=== PATIENT | male | born 1955 | race Caucasian/White ===

== ENCOUNTER 2024-07-03 09:15 | Emergency (ER) | payer BC, OTHER, SELFPAY ==
[2024-07-03 09:20] VITALS: BP 165/92; PULSE 76; TEMP 36.7; O2SAT 96; BMI 29.7
--- NOTE | 2024-07-03 09:28 | ED_ITS ---
HPI HPI - General Adult General Chief complaint: Back Pain/Injury Stated complaint: LOWER BACK PAIN Time Seen by Provider: 07/03/24 09:18 Source: patient Mode of arrival: walk-in Limitations: no limitations History of Present Illness HPI narrative: Patient presenting to the emergency department for evaluation of right low back pain. Patient states when he tried to get up out of bed this morning, he noted when he sat up too quickly exam pain on the right lower lumbar. Patient states it been worse whenever he tries to sit up, go from standing to sitting or lying back down, or when he tries to go from sitting to standing. States his in the right lower lumbar, radiates down the right buttock into the right upper thigh posteriorly. Has had no bowel or bladder incontinence, no numbness, tingling, weakness. Has had no gait instability. No difficulty ambulating. No bowel or bladder incontinence, no perineal or saddle anesthesia. Can feel when he wipes. No trauma. No complaints at this time Related Data Previous Rx's ?Medication ?Instructions ?Recorded cyclobenzaprine 10 mg tablet 10 mg PO TID PRN muscle spasm #14 07/03/24 tabs naproxen 500 mg tablet 500 mg PO Q12H PRN pain #20 tabs 07/03/24 Allergies Allergy/AdvReac Type Severity Reaction Status Date / Time No Known Drug Allergies Allergy Verified 07/03/24 09:20 Opioid HPI Opioid Management Most Recent Opioid Data: 2 Last Pain Scale 9 07/03/24 09:23 Review of Systems ROS Narrative Negative unless otherwise stated in the HPI PFSH PFSH Social History Little interest or pleasure in doing things: not at all Feeling down, depressed, or hopeless: not at all Exam Narrative Exam Narrative: General: NAD, AAOx3, no distress Back: Right lower lumbar pain, tenderness and hypertonicity, no midline pain or tenderness, positive EHL bilaterally, no perianal or saddle anesthesia, positive straight leg raise of right leg at 60 degrees Ext: No abnormal range of motion, no swelling, 5 out of 5 strength, normal sensation and motor Neuro: Speech is clear and appropriate. Normal level of consciousness. Gait and coordination are normal. 5/5 strength in all extremities. Constitutional Vital Signs, click to edit/add: Last Vital Signs Temp 98.1 F 07/03/24 09:20 Pulse 76 07/03/24 09:20 Resp 18 07/03/24 09:20 BP 165/92 H 07/03/24 09:20 Pulse Ox 96 07/03/24 09:20 O2 Del Method Room Air 07/03/24 09:20 Course Vital Signs Vital signs: Vital Signs Temperature 98.1 F 07/03/24 09:20 Pulse Rate 76 07/03/24 09:20 Respiratory Rate 18 07/03/24 09:20 Blood Pressure 165/92 H 07/03/24 09:20 Pulse Oximetry 96 07/03/24 09:20 Oxygen Delivery Method Room Air 07/03/24 09:20 Temperature 98.1 F 07/03/24 09:20 Pulse Rate 76 07/03/24 09:20 Respiratory Rate 18 07/03/24 09:20 Blood Pressure 165/92 H 07/03/24 09:20 Pulse Oximetry 96 07/03/24 09:20 Oxygen Delivery Method Room Air 07/03/24 09:20 Medical Decision Making MDM Narrative Medical decision making narrative: [facility] Patient with history as above presented with right low back pain. History obtained from patient. Patient was nontoxic, stable. Ambulatory. Exam as above. Differential diagnosis considered. Overall presentation is consistent with lumbar back strain, low suspicion for neurologic injury or abnormality Pt who presents with low back pain without signs of spinal cord compression, cauda equina syndrome, infection, aneurysm, or other serious etiology. The patient is neurologically intact. Xray imaging not indicated. Given the extremely low risk of these diagnoses further testing and evaluation for these possibilities does not appear to be indicated at this time. The patient has been instructed to return if the symptoms worsen or change in any way. Positive EHL bilaterally Advanced guidance has been given. Vss, pex is benign at this time. Pt to fu with pcp 1-2 days for reeval, rter should sx worsen, persist or become worrysome in any way. Pt expressed understanding and agreement with plan of care at this time. Will fu as planned. Pt stable for discharge. Discharge Plan Discharge Chief Complaint: Back Pain/Injury Clinical Impression: Back pain Patient Disposition: Home, Self-Care Time of Disposition Decision: 09:32 Condition: Good Prescriptions / Home Meds: New naproxen 500 mg tablet 500 mg PO Q12H PRN (Reason: pain) Qty: 20 0RF cyclobenzaprine 10 mg tablet 10 mg PO TID PRN (Reason: muscle spasm) Qty: 14 0RF Print Language: Israeli Instructions: Acute Low Back Pain (ED) Additional Instructions: Follow-up with your PCP in the next 1 to 2 days. Return to the emergency department should symptoms worsen or become worrisome in any way. Referrals: Physician,Non-Staff, MD [Primary Care Provider] - 1 week
[2024-07-03] MEDS: KETOROLAC TROMETHAMINE 30 MG/ML VIAL 15 MG IM (09:37)
[2024-07-03] MEDS: CYCLOBENZAPRINE HCL 10 MG TABLET PO (09:37)
[2024-07-03 09:43] VITALS: BP 138/86; PULSE 86; O2SAT 98
== END 2024-07-03 09:44 | disposition home or self-care (01) ==
PROVIDERS: Emergency Provider Emergency Medicine; PCP Family Medicine
DX: M54.50 Low back pain, unspecified (principal)
CPT/HCPCS: 96372; 99284; J1885

== ENCOUNTER 2024-09-16 18:28 | Emergency (ER) | payer BC, OTHER, SELFPAY ==
[2024-09-16 18:34] VITALS: BP 154/97; PULSE 113; TEMP 36.9; O2SAT 95; BMI 30.2
--- OUTSIDE RECORDS SUMMARY | 2024-09-16 18:35 | XMS_ITS | CCD ---
Author Organization [facility] Care Team Providers Care Assessment Technician Name Role Phone Alejo BRADLEY Primary Care Physician Vidhya Reed Unavailable Alejo BRADLEY Attending Unavailable Alejo BRADLEY Admitting Unavailable Alejo BRADLEY Attending Unavailable Alejo BRADLEY Attending Unavailable Trixie Guzman. Attending Unavailable Trixie Guzman. Attending Unavailable Alejo BRADLEY Referring Unavailable KEYON MORGAN Attending Unavailab le Trixie Guzman Admitting Unavailable Trixie Guzman Attending Unavailable Trixie Guzman Referring Unavailable Alejo BRADLEY Admitting Unavailable Alejo BRADLEY Attending Unavailable Medications Current Medications Medication Drug Class(es) Dates Sig (Normalized) Sig (Original) acetaminophen 300 mg / codeine phosphate 30 mg oral tablet (1 source) Opioid Agonist Start: 07-09-2022 End: 07-11-2022 Tylenol with Codeine 300 mg-30 mg Tab 1 tab(s), Oral, q6hr as needed for pain, 12 tab(s), Refill(s) 0, [facility] #[id number], 187.2, cm, 07/01/22 14:47:00 EDT, Height/Length Dosing, 105.6, kg, 07/01/22 14:47:00 EDT, Weight Dosing Start Date: 07/09/22 Stop Date: 07/11/22 Status: Ordered magnesium sulfate 225 MG / potassium chloride 188 MG / sodium sulfate 1479 MG Oral Tablet [Sutab] (2 sources) Start: 05-06-2022 take 1 tablet by mouth once Sutab oral tablet See Instructions, 1 EA, Refill(s) 0, Please follow instructions per packaging and physician's handout, [facility] #[id number], 187.2, cm, 05/06/22 15:46:00 EDT, Height/Length Dosing, 107.1, kg, 05/06/22 15:46:00 EDT, Weight Dosing Start Date: 05/06/22 Status: Ordered ofloxacin 3 mg/ml ophthalmic solution (1 source) Quinolone Antimicrobial Start: 05-24-2023 Ofloxacin 0.3 % 10 drops into affected ear Otic to right ear Once a day for 7 days Apr, Active tadalafil 5 mg oral tablet (2 sources) Phosphodiesterase 5 Inhibitor Start: 08-07-2022 take 1 tablet by mouth once daily as needed Cialis 5 mg oral tablet 5 mg = 1 tab(s), Oral, Daily, PRN ED, # 90 tab(s), Refills(s) 3, Pharmacy: [facility] #[id number], 187.2, cm, 08/07/22 7:52:00 EST, Height/Length Dosing, 105.5, kg, 08/07/22 7:52:00 EST, Weight Dosing Start Date: 08/07/22 Status: Ordered triamcinolone acetonide 0.001 mg/mg topical ointment (9 sources) Corticosteroid Start: 05-01-2022 triamcinolone Top 0.1% Oint 1 judith, Topical, TID, 30 gram, Refill(s) 0, apply a thin film to affected area, avoid using on face., [facility] #[id number], 187.2, cm, 05/01/22 11:21:00 EDT, Height/Length Dosing, 106.7, kg, 05/01/22 11:21:00 EDT, Weight Dosing Start Date: 05/01/22 Status: Ordered Problems Active Problems Problem Classification Problem Date Documented Date Episodic/Chronic Abdominal hernia (17 sources) Inguinal hernia; Translations: [Unilateral inguinal hernia, without obstruction or gangrene, not specified as recurrent] Onset: 06-17-2022 Episodic Disorders of lipid metabolism (12 sources) Familial hypercholesterolemia ; Translations: [Familial hypercholesterolemia ] Onset: 08-07-2022 06-10-2021 Chronic Diverticulosis and diverticulitis (15 sources) Diverticula of intestine; Translations: [Diverticulosis of intestine, part unspecified, without perforation or abscess without bleeding] Onset: 07-01-2022 Chronic Other ear and sense organ disorders (1 source) Impacted cerumen in right ear; Translations: [Impacted cerumen, right ear] Onset: 05-19-2023 Episodic Other ear and sense organ disorders (7 sources) Excessive cerumen in ear canal 05-19-2023 Episodic Other ear and sense organ disorders (1 source) Impacted cerumen, right ear Episodic Other ear and sense organ disorders (1 source) Unspecified acute noninfective otitis externa, right ear Episodic Other injuries and conditions due to external causes (16 sources) Injury of knee 03-06-2020 Episodic Other male genital disorders (1 source) Corporo-venous occlusive erectile dysfunction; Translations: [Erectile dysfunction] Onset: 08-07-2022 Chronic Other male genital disorders (9 sources) 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 08-07-2022 Chronic Other non-traumatic joint disorders (16 sources) Knee pain 03-06-2020 Episodic Other non-traumatic joint disorders (1 source) Pain in right knee; Translations: [Pain of right knee joint] Onset: 08-07-2022 Episodic Other nutritional; endocrine; and metabolic disorders (20 sources) Obesity; Translations: [Obesity, unspecified] Onset: 05-01-2022 Chronic Other nutritional; endocrine; and metabolic disorders (3 sources) Obese class I; Translations: [Body mass index (BMI) 30.0-30.9, adult] Onset: 05-01-2022 Chronic Other nutritional; endocrine; and metabolic disorders (9 sources) Body mass index 30+ - obesity 01-16-2020 Chronic Other nutritional; endocrine; and metabolic disorders (16 sources) Metabolic disease 06-10-2021 Chronic Other nutritional; endocrine; and metabolic disorders (2 sources) Disorder of protein metabolism; Translations: [Other disorders of plasma-protein metabolism, not elsewhere classified] Onset: 08-07-2022 Chronic Other nutritional; endocrine; and metabolic disorders (2 sources) Overweight in adulthood with body mass index of 25 or more but less than 30; Translations: [Body mass index (BMI) 29.0-29.9, adult] Onset: 05-19-2023 Episodic Other nutritional; endocrine; and metabolic disorders (1 source) Overweight; Translations: [Overweight] Onset: 06-14-2024 Episodic Other screening for suspected conditions (not mental disorders or infectious disease) (12 sources) Screening for malignant neoplasm of colon done; Translations: [Encounter for screening for malignant neoplasm of colon] Onset: 05-06-2022 Episodic Other skin disorders (2 sources) Epidermoid cyst; Translations: [Epidermal cyst] Onset: 05-01-2022 Episodic Other skin disorders (16 sources) Epidermoid cyst of skin of back 05-01-2022 Episodic Residual codes; unclassified (1 source) Patient encounter status; Translations: [Other specified health status] Onset: 05-01-2022 Episodic Residual codes; unclassified (16 sources) Increased body mass index 03-06-2020 Episodic Unclassified (16 sources) Non-smoker 05-01-2022 Unclassified (20 sources) Patient encounter status 05-08-2020 Past or Other Problems Problem Classification Problem Date Documented Da te Episodic/Chronic Skin and subcutaneous tissue infections (16 sources) Cellulitis of face Resolved: 04-26-2019 04-29-2019 Episodic Unclassified (16 sources) None (qualifier value) 06-10-2014 Unclassified (16 sources) Sebaceous cyst of skin 03-06-2020 Results Test Name Value Interpretation Reference Range Facility [facility] 08-02-2024 Reminders Reminders From: Bri Frazier To: [facility] - Reminders/Recalls; Sent: 08/02/2024 16:09:48 EST Show up: 06/20/2034 16:09:00 EDT Subject: Ambulatory Reminder- 10 year recall Due Date/Time: 07/20/2034 16:09:00 EDT Reminder/Recall Colonoscopy 07/20/24 Dr Guzman 10 year recall Normal [facility] Main OR Intraoperative Recor don 07-21-2024 Main OR Intraoperative Record Main OR Intraoperative Record IntraOp Document Type FT Summary Primary Physician: Trixie Guzamn MD Finalized Date/Time: 07/21/24 14:24:42 Pt. Name: NEELIMA JACOBSON/Sex: 1955 Male Med Rec #: [id number] Physician: Trixie Guzman MD Financial #: [id number] Pt. Type: O Room/Bed: / Admit/Disch: 07/20/24 08:28:46 - 07/20/24 23:59:59 Institution: Case Times FT Entry 1 Patient Times In Room 07/20/24 09:36:00 Out Room 07/20/24 09:57:00 Procedure Times Start 07/20/24 09:40:00 Stop 07/20/24 09:55:00 Anesthesia Times Start 07/20/24 09:36:00 Stop 07/20/24 09:57:00 Time at [facility] 07/20/24 09:44:00 Last Modified By: Chelsea CARPENTER, Federico Barros 07/20/24 09:56:47 General Comments: 07/21/24 Chart opened to review and send charges [facility]oth CSFA Case Attendance FT Entry 1 Entry 2 Entry 3 Case Attendee Lurdes HERNANDEZ, James Tran RN, Jose Calros Brown Role Performed Anesthesiologist Asbestos Handler - Primary Staff - Other Harness Racing Handicapper Time In 07/20/24 09:36:00 07/20/24 09:36:00 07/20/24 09:44:00 Time Out 07/20/24 09:57:00 07/20/24 09:57:00 07/20/24 09:57:00 Procedure COLONOSCOPY(.) COLONOSCOPY(.) COLONOSCOPY(.) Comments Dr. Rosario help in room supervising case Last Modified By: Chelsea RN, Federico Tran RN, Federico Tran RN, Federico Barros 07/20/24 09:57:16 07/20/24 09:57:16 07/20/24 09:57:16 Entry 4 Entry 5 Case Attendee Connie LACY, Marie Guzman MD, Trixie Galindo Role Performed Scrub - Primary Surgeon - Primary Time In 07/20/24 09:36:00 07/20/24 09:36:00 Time Out 07/20/24 09:57:00 07/20/24 09:57:00 Procedure COLONOSCOPY(.) COLONOSCOPY(.) Comments Last Modified By: Chelsea RN, Federico Tran RN, Federico Barros 07/20/24 09:57:16 07/20/24 09:57:16 Perioperative Protocols FT Pre-Care Text: Implements protective measures prior to operative or invasive procedure, confirms identity before the operative or invasive procedure, verifies operative procedure, surgical site, and laterality Entry 1 Procedure(s) COLONOSCOPY(.) Patient Identity Birthday, ID Band Verified (select at Check, Patient least 2): Participation Consents / H and P Anesthesia Consent, Operative Site N/A Verified H&P, Surgery/Procedure Marking Verified Consent Surgical Site No Laterality Verified n/a Verified Procedure Verified Yes Correct Patient Yes Position Verified Availability Equipment, Medication Prep Dry n/a Verified (If Applicable) PreOp Antibiotic No Time Out James Garg Given Participants Chelsea Davies RN, Morgan E, Schafer CST, Megan Zamudio MD, Trixie Patterson Time Out Complete 07/20/24 09:39:00 Outcomes Met? Yes Last Modified By: Federico Tran RN 07/20/24 09:40:08 Post-Care Text: The patient is free from signs and symptoms of injury caused by extraneous objects Allergy Information FT Pre-Care Text: Verifies allergies Entry 1 Allergies Reviewed? Yes Allergies Reviewed Self/Patient With Outcomes Met? Yes Last Modified By: Federico Tran RN 07/20/24 09:37:42 Post-Care Text: The patient received appropriate medication(s) safely administered during the perioperative period Surgical Procedures FT Entry 1 Procedure Description Procedure COLONOSCOPY Modifiers . Surgeon Description Colonoscopy Primary Procedure Yes Primary Surgeon Megan RAMIREZ, Trixie Patterson Start 07/20/24 09:40:00 Stop 07/20/24 09:55:00 Anesthesia Type General Surgical Service Gastroenterology Wound Class 2 - Clean-Contaminated Last Modified By: Federico Tran RN 07/20/24 09:57:55 General Case Data FT Pre-Care Text: Classifies surgical wound, implements aseptic technique, initiates traffic control Entry 1 Case Information OR ENDO 1 FT Case Level Level 2 Wound Class 2 - Clean-Contaminated Specialty Gastroenterology ASA Class 2 Preop Diagnosis Colon cancer screening Postop Same As Preop No Postop Diagnosis External Outcomes Met? Yes hemorrhoids/Skin tags, Internal hemorrhoids Last Modified By: Federico Tran RN 07/20/24 09:57:07 Post-Care Text: The patient is free from signs and symptoms of infection Skin Assessment (Pre Procedure) FT Pre-Care Text: Implements protective measures to prevent skin/ tissue injury due to thermal or mechanical sources Evaluates for signs and symptoms of physical injury to skin and tissue Entry 1 Skin Integrity Dry, Warm Skin Abnormality No Outcomes Met? Yes Last Modified By: Federico Tran RN 07/20/24 09:39:34 Post-Care Text: The patient is free from signs and symptoms of injury caused by extraneous objects Patient Positioning FT Pre-Care Text: Identifies physical alterations that require additional precautions for procedure-specific positioning, verifies presence of prosthetics or corrective devices, positions the patient, evaluates the patient for signs and symptoms of injury as a result of positioning Entry 1 Procedure COLONOSCOPY(.) Body Position (more content not included)... Normal [facility] Discharge Instructionson Discharge Instructions Discharge Instructions NEELIMA JACOBSON :1955 Visit Date:07/20/2024 Inpatient Discharge Instructions Your Care Team Admitting Physician - Trixie Guzman MD Referring Physician - Trixie Guzman MD Reason for Your Visit SCREEN FOR COLON CANCER Your Diagnosis Anal skin tag Hemorrhoids, internal Procedure History Repair of left inguinal hernia (07/09/2022), Colonoscopy (05/03/2012). What to do next Previously Scheduled Follow-Up Appointments 2023 9:40 AM EST With: PAULINA MORGAN PA-C Where: [facility] [address] [place] [address] [place] [address]- Thursday 12:45 PM EST With: Trixie Guzman MD Where: [facility] [address] [facility] [address] [place] [address]- Thursday 7:40 AM EDT With: Alejo BRADLEY DO, FAAFP Where: [facility] [address], [place] [address]- New Follow Up Appointments after Discharge Follow Up with Trixie Guzman MD, [facility], [facility] When: Comments: Office will call to schedule follow up appointment and/or review any pending biopsy results Call for any problems. Where: [address], [address] [place] [phone] Allergies No Known Allergies Problems Ongoing - Any problem that you are currently receiving treatment for. 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 Cellulitis, face Class 1 obesity with body mass index (BMI) of 30.0 to 30.9 in adult None Sebaceous cyst Education Materials Colonoscopy Care After Surgery Please read the instructions outlined below and refer to this sheet in the next few weeks. These discharge instructions provide you with general information on caring for yourself after you leave the hospital. Your doctor may also give you specific instructions. While your treatment has been planned according to the most current medical practices available, unavoidable complications occasionally occur. If you have any problems or questions after discharge, please call your doctor. ACTIVITY You may resume your regular activity, but move at a slower pace for the next 24 hours. Take frequent rest periods for the next 24 hours. Walking will help get rid of the air and reduce the bloated feeling in your abdomen (belly). No driving for 24 hours (because of the anesthesia (medicine) used during the test). You may shower. Do not sign any important legal documents or operate any machinery for 24 hours (because of the anesthesia used during the test). NUTRITION Drink plenty of fluids. You may resume your normal diet as instructed by your doctor. Begin with a light meal and progress to your normal diet. Heavy or fried foods are harder to digest and may make you feel nauseated (sick to your stomach). Avoid alcoholic beverages for 24 hours or as instructed. MEDICATIONS You may resume your normal medications unless your doctor tells you otherwise. WHAT YOU CAN EXPECT TODAY Some feelings of bloating in the abdomen. Passage of more gas than usual. Spotting of blood in your stool or on the toilet paper. FOLLOW-UP Your doctor will discuss the results of your test with you. SEEK IMMEDIATE MEDICAL ATTENTION IF: There is more than a spotting of blood in your stool. There is abdominal distention (your abdomen is swollen). There is vomiting. You have a temperature over 101.5 F. There is abdominal pain or discomfort that is severe or gets worse throughout the day. Hemorrhoids Hemorrhoids are swollen veins that may form: ??? In the butt (rectum). These are called internal hemorrhoids. ??? Around the opening of the butt (anus). These are called external hemorrhoids. Most hemorrhoids do not cause very bad problems. They often get better with changes to your lifestyle and what you eat. What are the causes? Having trouble pooping (constipation) or watery poop (diarrhea). ??? Pushing too hard when you poop. ??? . ??? Being very overweight (obese). ??? Sitting for too long. ??? Riding a bike for a long time. ??? Heavy lifting or other things that take a lot of effort. ??? Anal sex. What are the signs or symptoms? Pain. ??? Itching or soreness in the butt. ??? Bleeding from the butt. ??? Silva (more content not included)... Normal [facility] Comment on above: Result Comment: Elec tronically Signed By: Nolan CARPENTER, Belle\.br\Date and Time Signed: 07/20/24 10:15 EDT H&P Updateon 07-20-2024 H&P Update H&P Update Patient: NEELIMA JACOBSON Age: 68 years Sex: Male : 1955 Associated Diagnoses: None Author: Megan RAMIREZ, Trixie Patterson Preoperative Information Chief compliant/Indication for procedure: Screening colonoscopy Chief Complaint as above Review of Systems All systems reviewed, negative except as mentioned above Physical Examination Vital Signs (last 24 hrs) Last Charted Temp Temporal 36.6 DegC (JUL 20 08:39) Heart Rate Monitored 84 bpm (JUL 20 08:39) Resp Rate 15 br/min (JUL 20 08:39) SBP H 163 mmHg (JUL 20 08:39) DBP 88 mmHg (JUL 20:39) Weight 109 kg (JUL 20 08:35) BMI 31.17 (JUL 20 08:35) General: in Nad Abdomen: Soft, NTND Impression and Plan Diagnosis: Screening colonoscopy - colonoscopy Normal [facility] Main OR PACU II Recordon Main OR PACU II Record Main OR PACU II Record PACU Phase II Document Type FT Summary Primary Physician: Trixie Guzman MD Finalized Date/Time: 07/20/24 12:39:44 Pt. Name: NEELIMA JACOBSON/Sex: 1955 Male Med Rec #: [id number] Physician: Trixie Guzman MD Financial #: [id number] Pt. Type: O Room/Bed: / Admit/Disch: 07/20/24 08:28:46 - Institution: Case Times PACU II FT Pre-Care Text: Identifies barriers to communication and implements measures to provide psychological support and determines knowledge level Develops individualized plan of care, and ensures continuity of care Maintains patient's dignity and privacy, and maintains patient confidentiality Identifies and reports philosophical, cultural, and spiritual beliefs and values Identifies individual values and wishes concerning care administers prescribed antibiotic therapy and immunizing agents as ordered, Evaluates postoperative tissue perfusion Implements thermoregulation measures, and monitors body temperature Evaluates postoperative respiratory status Evaluates postoperative cardiac status Evaluates postoperative neurological status Assesses pain control, collaborated in initiating patient-controlled analgesia and implements alternative methods of pain control Verifies allergies, administers prescribed medications and solutions, evaluates response to medications Entry 1 In PACU II 07/20/24 09:59:00 Discharge from PACU 07/20/24 10:40:00 II Outcomes Met? Yes Last Modified By: Belle Francisco RN 07/20/24 12:39:41 Post-Care Text: The patient demonstrates knowledge of the expected response to the operative or invasive procedure The patient's care is consistent with the individualized perioperative plan of care The patient's right to privacy is maintained The patient's value system, lifestyle, ethnicity, and culture are considered, respected, and incorporated into the perioperative plan of care The patient participates in decisions affecting his or her perioperative plan of care. The patient is free from signs and symptoms of infection The patient has wound/tissue perfusion consistent with or improved from baseline levels established preoperatively The patient is at or returning to normothermia at the conclusion of the immediate postoperative period The patient's respiratory function is consistent with or improved from baseline levels established preoperatively The patient's cardiovascular status is consistent with or improved from baseline levels established preoperatively The patient's neurological status is consistent with or improved from baseline levels established preoperatively The patient demonstrates and/or reports adequate pain control throughout the perioperative period The patient received appropriate medication(s), safely administered during the perioperative period Finalized By: Belle Francisco RN Document Signatures Signed By: Belle Francisco RN 07/20/24 12:39 Normal [facility] Main OR Preoperative Recordo n 07-20-2024 Main OR Preoperative Record Main OR Preoperative Record Holding Area Document Type FT Summary Primary Physician: Trixie Guzman MD Finalized Date/Time: 07/20/24 08:35:52 Pt. Name: NEELIMA JACOBSON/Sex: 1955 Male Med Rec #: [id number] Physician: Trixie Guzman MD Financial #: [id number] Pt. Type: O Room/Bed: / Admit/Disch: 07/20/24 08:28:46 - Institution: Case Times Holding FT Pre-Care Text: Verifies consent for planned procedure, identifies individual values and wishes concerning care, includes family members in perioperative teaching Secures patient's records' belongings, and valuables, maintains patient's dignity and privacy, and maintains patient confidentiality Entry 1 In Holding 07/20/24 08:30:00 Outcomes Met? Yes Last Modified By: Alexandra Mendoza RN 07/20/24 08:34:56 Post-Care Text: The patient participates in decisions affecting his or her perioperative plan of care The patient's right to privacy is maintained Surgery Checklist FT Entry 1 Patient Birthday, ID Band Procedure History and Physical, Identification: Check, Patient Verification: Surgical Consent, With Participation Patient NPO after Midnight: Yes Date/Time: 07/20/24 04:15:00 Personal Items: Dentures, Glasses Personal Items clothes, shoes, Comment: glasses, upper dentures Limitations: n/a Complaints of Pain: No Pain Comment: denies Operative Site n/a Marking: Marked By: n/a Availability Equipment Verified: Does Patient Smoke No Patient states Yes Comment - Adult - Vicente postop adult Supervision supervision available Case Cancelled in No Holding Area see comments below for reason Last Modified By: Alexandra Mendoza RN 07/20/24 08:35:49 General Comments: Pt finished colon prep at 0415, states stool is clear liquid yellow, has been NPO since. /MDRN Finalized By: Alexandra Mendoza RN Document Signatures Signed By: Alexandra Mendoza RN 07/20/24 08:35 Normal [facility] Operative Reporton Operative Report Operative Report Patient: NEELIMA JACOBSON Age: 68 years Sex: Male : 1955 Associated Diagnoses: None Author: Trixie Guzman MD Pre-Procedure Procedure Date 07/20/2024 10:00:00 . Procedure Type: Colonoscopy. Procedure provider Performed by Trixie Guzman MD. Current history and physical Documented on chart. Repair of left inguinal hernia ([id number]) on 07/09/2022 at 66 Years. Comments: 07/09/2022 17:03 Ana Maria Palumbo RN Left robotic assisted inguinal hernia repair Colonoscopy ([id number]) on 05/03/2012 at 56 Years.. Past Medical History Active BMI 29.0-29.9,adult ([id number]) Resolved None ([id number]): Resolved. Cellulitis, face ([id number]): Resolved on 04/26/2019 at 63 years. Class 1 obesity with body mass index (BMI) of 30.0 to 30.9 in adult ([id number]): Resolved. Sebaceous cyst ([id number]): Resolved.. Family History Entire family history is negative.. Procedure History Repair of left inguinal hernia ([id number]) on 07/09/2022 at 66 Years. Comments: 07/09/2022 17:03 Ana Maria Palumbo RN Left robotic assisted inguinal hernia repair Colonoscopy ([id number]) on 05/03/2012 at 56 Years.. Colorectal neoplasm risk assessment Average risk. Informed Consent After discussing the rationale, risks and benefits, and alternatives to this procedure, the patient provided signed consent for the procedure. Pre-procedure diagnosis: Screening. Medications (Selected) Inpatient Medications Ordered Lactated Ringers IV Kiara 1000 mL 1,000 mL: 1,000 mL, IV, 100 mL/hr, Routine, Start date 07/20/24 8:48:00 EDT, 10 hour(s), Total volume (mL): 1,000, 109 kg, 2.38, m2 Sodium Chloride 0.9% IV Kiara 1000 mL 1,000 mL: 1,000 mL, IV, 20 mL/hr, Routine, Start date 07/20/24 6:37:00 EDT, 50 hour(s), Total volume (mL): 1,000, 109 kg, 2.38, m2 Anticoagulant/antiplatelet None. ASA Classification: Class II. . Monitoring: See anesthesia record. . Procedure The procedure was performed in the hospital. See anesthesia record for sedation given during procedure. The patient was positioned starting in the left lateral decubitus position. Endoscope type used was an adult-size. The endoscope was lubricated then introduced through the anus. The scope was advanced to the cecum. No difficulties encountered during the procedure. The bowel preparation quality was good and was adequate (see polyps greater than or equal to 6 millimeters). The patient tolerated the procedure well. Time to Cecum: 4 min Withdrawal time 11 min Last colonoscopy: 21 Findings 1. External skin tag 2. Moderate internal hemorrhoids. Otherwise normal exam Images Procedure images: Rec_hd_video__ [id number]___[id number].jpg Rec_hd_video_ [id number]__[id number].jpg Rec_hd_video_ 9___[id number].jpg Rec_hd_video_ 9_[id number].jpg . Post-Procedure Complications: none. Estimated blood loss: none. Specimens: none. Devices/ implants: none left in place. Impression and Plan internal hemorrhoids Anal skin tags Recommendations: Repeat colonoscopy:: In 10 years. Follow-up:: With primary care as previously scheduled. Diet:: Previous. Medication resumption:: Continue current medications, Avoid NSAIDs. Return to activities:: After 24 hours. Education and Follow-up: Counseled: Patient, Family. [facility] Comment on above: Result Comment: Elec tronically Signed By: Trixie Guzman MD\.br\Date and Time Signed: 07/20/24 10:01 EDT Other Comment: Shereen de luna Attachment - attachment storage system not supported [id number] Can be viewed in source systemMissing Attachment - attachment storage system not supported [id number] Can be viewed in source systemMissing Attachment - attachment storage system not supported [id number] Can be viewed in source systemMissing Attachment - attachment storage system not supported [id number] Can be viewed in source system Ambulatory Visit Summaryon 1 Ambulatory Visit Summary Ambulatory Visit Summary NEELIMA JACOBSON :1955 Visit Date:07/07/2024 Ambulatory Visit Instructions Your Diagnosis Screen for colon cancer Left inguinal hernia Your Care Team Attending Physician - Trixie Guzman MD Primary Care Physician - Alejo BRADLEY DO, FAAFP Procedures Performed Repair of left inguinal hernia (07/09/2022), Colonoscopy (05/03/2012). Discharge Vitals Heart Rate (Peripheral) 77 Respiratory Rate 16 Blood Pressure 167/90 Height 187 cm Height 74 in Weight 109 kg Weight 239.8 lb BMI 31.17 What to do next Scheduled Follow-Up Appointments 2023 9:40 AM EST With: PAULINA MORGAN PA-C Where: [facility] [address] [place] [address]- Thursday 7:40 AM EDT With: Alejo BRADLEY DO, FAAFP Where: [facility] [address] [place] [address] [place] [address]- Allergies No Known Allergies Problems Ongoing - Any problem that you are currently receiving treatment for. 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 Cellulitis, face Class 1 obesity with body mass index (BMI) of 30.0 to 30.9 in adult None Sebaceous cyst Patient Survey You may receive a survey via text or e-mail asking about your office visit. Please share your experience with us by completing your survey. We appreciate your feedback and thank you for choosing us for your care. Emma Schwab [facility] Gastroenterology Office/Clin ic Noteon 07-07-2024 Gastroenterology Office/Clinic Note Gastroenterology Office/Clinic Note Chief Complaint 1 year colon recall HPI Staff This is a 68 year old male who presents today for a 1 year colon recall. Denies Blood Thinners. Denies GLP-1 Agonists. Denies any family history of colon cancer/polyps or IBD. Denies Dysphagia, abdominal pain, constipation, diarrhea or bloody stools. Denies any previous EGD. Denies any recent imaging or labs. Last visit w/ Christiana 06/2022 Assessment/Plan 1. Diverticulosis (K57.90: Diverticulosis of intestine, part unspecified, without perforation or abscess without bleeding) Patient to have repeat colonoscopy in 1 year- 2022. Educated regarding use of fiber supplementation daily- instructed to separate 2 hours from other medications. Colonoscopy w/ Dr Whitehead 05/20/22 Endoscopic diagnosis: 1. Incomplete colonoscopy secondary to significant looping, scope reached distal transverse colon 2. Severe diverticulosis in the sigmoid and descending colon Barium Enema 05/20/22 IMPRESSION: LEFT INTERNAL HERNIA CONTAINING 15 CM LONG PROXIMAL SIGMOID COLONIC LOOP. MILD DIVERTICULOSIS OF THE DISTAL SIGMOID COLON AND MIDDLE DESCENDING COLON. History of Present Illness I have reviewed HPI staff note, most recent labs and imaging, more than 30 minutes spent reviewing the chart, during encounter, placing orders and counseling the patient. pt with hx of incomplete colonoscopy no symptoms no hx of polyps hernia repaired Review of Systems PHQ Score Initial Depression Screen Score: 0 SCORE All systems reviewed, negative except as mentioned above Physical Exam Vitals & Measurements HR: 77(Peripheral) RR: 16 BP: 167/90 HT: 74 in HT: 187 cm WT: 109 kg WT: 239.8 lb BMI: 31.17 General: alert, no acute distress HEENT: atraumatic normocephalic Cardiovascular: regular rate and rhythm, normal peripheral perfusion Respiratory: Lungs CTA, respirations non labored Extremities: no deformity, no trauma Abdomen: Benign, soft, nontender nondistended Assessment/Plan 1. Screen for colon cancer (Z12.11: Encounter for screening for malignant neoplasm of colon) Ordered: Colonoscopy (Hospital Procedure) 2. 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 Medications No active medications Allergies No Known Allergies Social History Alcohol - Low Risk, 04/29/2019 Current, Liquor, 1-2 times per month, 07/09/2022 Substance Abuse - Denies Substance Abuse, 04/29/2019 Tobacco - Denies Tobacco Use, 04/29/2019 Never (less than 100 in lifetime) Tobacco Use:., 07/07/2024 Never (less than 100 in lifetime) Tobacco Use:. Never Smokeless Tobacco Use:., 06/14/2024 Family History Family history is negative Immunizations Vaccine Date Status Comments influenza virus vaccine, inactivated - Not Given Patient Refuses influenza virus vaccine, inactivated - Not Given Postpone due to refusal influenza virus vaccine, inactivated - Not Given Patient Refuses influenza virus vaccine, inactivated - Not Given Postpone due to refusal influenza virus vaccine, inactivated - Not Given Patient Refuses SARSCoV2 mRNA(svjxssarv-kjab-agzluq ) vac 12/17/2021 Recorded diphtheria/pertussis, acel/tetanus adult 11/23/2021 Recorded SARSCoV2 mRNA(zdbbskvwj-mulf-brjowr ) vac 11/23/2021 Recorded Normal [facility] Comment on above: Result Comment: Elec tronically Signed By: Megan RAMIREZ, Trixie Swann.br\Date and Time Signed: 07/07/24 09:11 EDT Ambulatory Visit Summaryon 0 06-14-2024 Ambulatory Visit Summary Ambulatory Visit Summary NEELIMA JACOBSON :1955 Visit Date:06/14/2024 Ambulatory Visit Instructions Your Diagnosis Well adult health check Screening PSA (prostate specific antigen) Elevated serum protein level Diverticulosis BMI 29.0-29.9,adult Overweight Your Care Team Attending Physician - Alejo BRADLEY DO, FAAFP Primary Care Physician - Alejo BRADLEY DO, FAAFP Procedures Performed Repair of left inguinal hernia (07/09/2022), Colonoscopy (05/03/2012). Discharge Vitals Temperature (Oral) 36.6 ?C Heart Rate (Peripheral) 82 Respiratory Rate 16 Blood Pressure 120/68 Height 187.2 cm Height 74 in Weight 104.8 kg Weight 230.56 lb BMI 29.91 What to do next Scheduled Follow-Up Appointments Thursday 7:40 AM EDT With: Alejo BRADLEY DO, FAAFP Where: [facility] [address], [facility] [place] [address]- You Need to Schedule the Following Appointments Follow Up with Alejo BRADLEY DO, FAAFP, FAM, PED When: In 1 year Where: [address] [place] [address]- You Need to Complete the Following Basic Metabolic Panel, Blood, Routine collect, 06/14/24, Order for future visit, Lab Collect, Well adult health check, Print Label By Order Location CBC w/ Auto Diff, Blood, Routine collect, 06/14/24, Order for future visit, Lab Collect, Well adult health check, Print Label By Order Location Hepatic Function Panel, Blood, Routine collect, 06/14/24, Order for future visit, Lab Collect, Well adult health check, Print Label By Order Location Lipid Panel, Blood, Routine collect, 06/14/24, Order for future visit, Lab Collect, Well adult health check, Print Label By Order Location PSA Screen, Total, Blood, Routine collect, 06/14/24, Order for future visit, Lab Collect, Well adult health check, Print Label By Order Location Thyroid Stimulating Hormone, Blood, Routine collect, 06/14/24, Order for future visit, Lab Collect, [facility] adult health check, Print Label By Order Location Medications and Immunizations Administered Not Given influenza virus vaccine, inactivated, Patient Refuses Allergies No Known Allergies Problems Ongoing - Any problem that you are currently receiving treatment for. 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 Cellulitis, face Class 1 obesity with body mass index (BMI) of 30.0 to 30.9 in adult None Sebaceous cyst Patient Survey You may receive a survey via text or e-mail asking about your office visit. Please share your experience with us by completing your survey. We appreciate your feedback and thank you for choosing us for your care. Normal [facility] BMPon 06-14-2024 Anion gap [Moles/Vol] 12 mmol/L Normal 6-16 [facility] Comment on above: Performed By: #### 2 [id number] #### [facility] [address] [place] [address] Calcium [Mass/Vol] 10.0 mg/dL Normal 8.9-11.1 [facility] Comment on above: Performed By: #### 2 [id number] #### [facility] [address] [place] [address] Chloride [Moles/Vol] 104 mmol/L Normal 101-111 [facility] Comment on above: Performed By: #### 2 [id number] #### [facility] [address] [place] [address] CO2 [Moles/Vol] 24 mmol/L Normal 21-31 [facility] Comment on above: Performed By: #### 2 [id number] #### [facility] [address] [place] [address] Creatinine [Mass/Vol] 0.8 mg/dL Normal 0.5-1.3 [facility] Comment on above: Performed By: #### 2 [id number] #### [facility] [address] [place] [address] Glucose [Mass/Vol] 89 mg/dL Normal 55-199 [facility] Comment on above: Performed By: #### 2 [id number] #### [facility] [address] [place] [address] Potassium [Moles/Vol] 4.0 mmol/L Normal 3.5-5.3 [facility] Comment on above: Performed By: #### 2 [id number] #### [facility] [address] [place] [address] Sodium [Moles/Vol] 136 mmol/L Normal 135-145 [facility] Comment on above: Performed By: #### 2 [id number] #### [facility] [address] [place] [address] Urea nitrogen [Mass/Vol] 13 mg/dL Normal 5-21 [facility] Comment on above: Performed By: #### 2 195027 #### [facility] [address] [place] [address] Urea nitrogen/Creatinine [Mass ratio] 16 No Units Normal 10-20 [facility] Comment on above: Performed By: #### 2 [id number] #### [facility] [address] [place] [address] CBC w/ Auto Diffon 4 Basophils/100 WBC (Bld) 0.3 % Normal 0.0-2.0 [facility] Comment on above: Performed By: #### 2 [id number] #### [facility] [address] [place] [address] Basophils/Leukocytes Auto (Bld) [Pure # fraction] 0.0 E9/L Normal 0.0-0.2 [facility] Comment on above: Performed By: #### 2 [id number] #### [facility] [address] [place] [address] Eosinophils (Bld) [#/Vol] 0.1 E9/L Normal 0.0-0.5 [facility] Comment on above: Performed By: #### 2 [id number] #### [facility] [address] [place] [address] Eosinophils/100 WBC (Bld) 1.3 % Normal 0.0-8.0 [facility] Comment on above: Performed By: #### 2 [id number] #### [facility] [address] [place] [address] Erythrocyte distribution width (RBC) [Ratio] 13.4 % Normal 10.9-14.2 [facility] Comment on above: Performed By: #### 2 [id number] #### [facility] [address] [place] [address] Hematocrit (Bld) [Volume fraction] 46.1 % Normal 37.7-49.0 [facility] Comment on above: Performed By: #### 2 [id number] #### [facility] [address] [place] [address] Hemoglobin (Bld) [Mass/Vol] 15.7 g/dL Normal 13.5-17.5 [facility] Comment on above: Performed By: #### 2 [id number] #### [facility] [address] [place] [address] Lymphocytes (Bld) [#/Vol] 2.4 E9/L Normal 1.0-4.0 [facility] Comment on above: Performed By: #### 2 [id number] #### [facility] [address] [place] [address] Lymphocytes/100 WBC (Bld) 27.6 % Normal 14.0-50.0 [facility] Comment on above: Performed By: #### 2 [id number] #### [facility] [address] [place] [address] MCH (RBC) [Entitic mass] 29.5 pg Normal 27.0-34.0 [facility] Comment on above: Performed By: #### 2 [id number] #### [facility] [address] [place] [address] MCHC (RBC) [Mass/Vol] 34.0 g/dL Normal 31.4-36.0 [facility] Comment on above: Performed By: #### 2 [id number] #### [facility] [address] [place] [address] MCV (RBC) [Entitic vol] 86.9 fL Normal 80.0-100.0 [facility] Comment on above: Performed By: #### 2 [id number] #### [facility] [address] [place] [address] Monocytes (Bld) [#/Vol] 0.7 E9/L Normal 0.2-1.0 [facility] Comment on above: Performed By: #### 2 [id number] #### [facility] [address] [place] [address] Neutrophils (Bld) [#/Vol] 5.4 E9/L Normal 2.0-7.5 [facility] Comment on above: Performed By: #### 2 [id number] #### [facility] [address] [place] [address] Neutrophils/100 WBC (Bld) 63.1 % Normal 36.0-75.0 [facility] Comment on above: Performed By: #### 2 [id number] #### [facility] [address] [place] [address] Platelet mean volume (Bld) [Entitic vol] 8.0 fL Normal 6.4-10.8 [facility] Comment on above: Performed By: #### 2 [id number] #### [facility] [address] [place] [address] Platelets (Bld) [#/Vol] 218.0 E9/L Normal 150.0-500.0 [facility] Comment on above: Performed By: #### 2 [id number] #### [facility] [address] [place] [address] RBC (Bld) [#/Vol] 5.3 E12/L Normal 4.3-5.9 [facility] Comment on above: Performed By: #### 2 [id number] #### [facility] [address] [place] [address] WBC corrected for nucl RBC Auto (Bld) [#/Vol] 8.5 E9/L Normal 4.0-11.0 [facility] Comment on above: Performed By: #### 2 [id number] #### [facility] [address] [place] [address] CHEMISTRYOrdered By: SYSTEM SYSTEM on 06-14-2024 Albumin [Mass/Vol] 4.6 g/dL Normal 3.3 - 5.0 gm/dL [facility] Albumin/Globulin [Mass ratio] 1.3 {ratio} Normal 1.1 - 2.2 [facility] ALP [Catalytic activity/Vol] 93 [iU]/d Normal 21 - 98 Int._Unit/L [facility] ALT No additional P-5'-P [Catalytic activity/Vol] 26 [iU]/d Normal 6 - 46 Int._Unit/L [facility] Anion gap [Moles/Vol] 12 mmol/L Normal 6 - 16 mEq/L [facility] AST [Catalytic activity/Vol] 23 [iU]/d Normal 5 - 43 Int._Unit/L [facility] Bilirubin [Mass/Vol] 0.8 mg/dL Normal 0.0 - 1 .1 mg/dL [facility] Bilirubin.direct [Mass/Vol] 0.1 mg/dL Normal 0.0 - 0.4 mg/dL [facility] Bilirubin.indirect [Mass or moles/Vol] 0.7 mg/dL Normal 0.1 - 0.9 mg/dL [facility] Calcium [Mass/Vol] 10.0 mg/dL Normal 8.9 - 11. 1 mg/dL [facility] Chloride [Moles/Vol] 104 mmol/L Normal 101 - 1 11 mmol/L [facility] Cholesterol [Mass/Vol] 219 mg/dL High 120 - 200 mg/dL [facility] Cholesterol in HDL [Mass/Vol] 41 mg/dL Invalid Interpretation Code [facility] Comment on above: Result Comment: '>= 60 LOW RISK' '<= 40 HIGH RISK' Cholesterol in LDL [Mass/Vol] 129 mg/dL Normal <=129mg/dL [facility] Cholesterol in VLDL [Mass/Vol] 66 mg/dL High 7 - 40 mg/dL [facility] CO2 [Moles/Vol] 24 mmol/L Normal 21 - 31 mmol/L [facility] Creatinine [Mass/Vol] 0.8 mg/dL Normal 0.5 - 1.3 mg/dL [facility] eGFR 97 mL/min/1.73 m2 Normal >=59mL/min / 1.73 m2 [facility] Globulin (S) [Mass/Vol] 3.5 g/dL Normal 1.4 - 4.0 gm/dL [facility] Glucose [Mass/Vol] 89 mg/dL Normal 55 - 199 mg/dL [facility] Potassium [Moles/Vol] 4.0 mmol/L Normal 3.5 - 5.3 mmol/L [facility] Prostate specific Ag [Mass/Vol] 3.6 ng/mL High 0.1 - 3.5 ng/mL [facility] Comment on above: Interpretive Data: T he concentration of PSA determined by different manufacturers can vary due to differences in assay methods and reagent specificity. Values obtained from different assay methods cannot be used interchangeably. The methodology used for this result was chemiluminescence using [employer]'s Access [employer] PSA reagent. Protein [Mass/Vol] 8.1 g/dL High 6.0 - 7.8 gm/dL [facility] Sodium [Moles/Vol] 136 mmol/L Normal 135 - 145 mmol/L [facility] Triglyceride [Mass/Vol] 329 mg/dL High <=149mg/dL [facility] TSH Qn 2.31 m[IU]/L Normal 0.34 - 5.60 mcIU/mL [facility] Urea nitrogen [Mass/Vol] 13 mg/dL Normal 5 - 21 mg/dL [facility] Urea nitrogen/Creatinine [Mass ratio] 16 mg/mg Normal 10 - 20 [facility] Family Medicine Office/Clini c Noteon 06-14-2024 Family Medicine Office/Clinic Note Family Medicine Office/Clinic Note Chief Complaint Wellness Visit History of Present Illness Here for follow up Have you had any ER visits or any hospitalizations since last visit? no Are you compliant with your medications and no difficulty affording your medications? yes Do you have side effects from the medication? no Are you compliant with your diet? yes Do you exercise? yes Do you have any of the following symptoms? Chest pain? no Palpitations? no TORIBIO/SOB? no Orthopnea? no PND? no Edema? no Have you had any recent cardiopulmonary testing? no Review of Systems PHQ Score Initial Depression Screen Score: 0 SCORE ROS - Provider Constitutional: no fever, no chills, no sweats, no weakness. Skin: no Jaundice, no rash, no lesions, no petechiae. ENMT: no ear pain, no sore throat, no congestion, no hoarseness. Respiratory: no shortness of breath, no cough, no orthopnea, no wheezing. Cardiovascular: no chest pain, no palpitations, no edema. Gastrointestinal: no nausea, no vomiting, no diarrhea, no GI bleeding.no constipationnoheartburn Genitourinary: no dysuria, no hematuria, no discharge, no pain.nofreq/urgency Musculoskeletal: no back pain, no trauma.nojoint pain Neurologic: no headache, no dizziness, no numbness, no weakness. Psychiatric: no sleeping problems, no irritability, no mood swings/depression. Heme/Lymph: no bleeding tendency, no bruising tendency, no petechiae, no swollen lymph nodes no Allergy/Imunology no seasonal allergies, no food allergies, no recurrent infections, no impaired immunity. Additional ROS info: Except as noted in the above Review of Systems and in the History of Present Illness all other systems have been reviewed and are negative or noncontributory. Physical Exam Vitals & Measurements T: 36.6 ?C(Oral) HR: 82(Peripheral) RR: 16 BP: 120/68 SpO2: 97% HT: 74 in HT: 187.2 cm WT: 104.8 kg WT: 230.56 lb BMI: 29.91 General: Well developed, well nourished, in no acute distress Mouth: Mucous membranes moist. Normal oropharynx, and posterior pharynx without lesions or exudates. Tongue normal Neck: Neck supple. No masses or palpable cervical nodes. Trachea midline. Thyroid without nodules, masses, tenderness, or enlargement Lungs: Normal respiratory effort and clear to auscultation Cardio: Regular rate and rhythm, normal S1 and S2, no murmur, no rub Abdomen: Soft, non-distended, non-tender. no G/R/S/Masses Musculoskeletal: No deformity or scoliosis noted. Normal range of motion. Joints normal. No erythema, edema, effusion, or ecchymosis Extremity: No clubbing, cyanosis, edema, or deformity, with normal ROM in both upper and lower bilateral extremities Neurologic: Grossly normal Skin: No rashes, ulcerations, or suspicious lesions Mental Status: Alert and oriented x3. Normal mood and affect Assessment/Plan 1. Well adult health check (Z00.00: Encounter for general adult medical examination without abnormal findings) Ordered: Basic Metabolic Panel CBC w/ Auto Diff Est Preventative 65+ years [address] Hepatic Function Panel Lipid Panel PSA Screen, Total Thyroid Stimulating Hormone 2. Screening PSA (prostate specific antigen) (Z12.5: Encounter for screening for malignant neoplasm of prostate) PSA 3. Elevated serum protein level (E88.09: Other disorders of plasma-protein metabolism, not elsewhere classified) Hepatic profile if still elevated consider referral to hematology 4. Diverticulosis (K57.90: Diverticulosis of intestine, part unspecified, without perforation or abscess without bleeding) High-fiber diet 5. BMI 29.0-29.9,adult (Z68.29: Body mass index [BMI] 29.0-29.9, adult) The standard range for ages 18 and older is >=18.5 and < 25 kg/m2. Your BMI today was above this range, this falls in the overweight to obese category and there are medical benefits to weight loss. We can offer counselling, referral, and/or medical support in addressing this problem. Your BMI and weight management will be followed at subsequent visits. 6. Overweight (E66.3: Overweight) Diet and exercise a BMI goal of 25 7. Colon cancer screening (Z12.11: Encounter for screening for malignant neoplasm of colon) Had incomplete colonoscopy 07/17/2022 needs complete colonoscopy Ordered: 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 Normal [facility] Comment on above: Result Comment: Elec tronically Signed By: Alejo BRADLEY DO, FAAFP\Date and Time Signed: 06/14/24 14:19 EDT HEMATOLOGYOrdered By: SYSTEM SYSTEM on 06-14-2024 Basophils/100 WBC (Bld) 0.3 % Normal 0.0 - 2.0 % [facility] Basophils/Leukocytes Auto (Bld) [Pure # fraction] 0.0 E9/L Normal 0.0 - 0.2 E9/L [facility] Eosinophils (Bld) [#/Vol] 0.1 E9/L Normal 0.0 - 0.5 E9/L [facility] Eosinophils/100 WBC (Bld) 1.3 % Normal 0.0 - 8.0 % [facility] Erythrocyte distribution width (RBC) [Ratio] 13.4 % Normal 10.9 - 14.2 % [facility] Hematocrit (Bld) [Volume fraction] 46.1 % Normal 37.7 - 49.0 % [facility] Hemoglobin (Bld) [Mass/Vol] 15.7 g/dL Normal 13.5 - 17.5 gm/dL [facility] Lymphocytes (Bld) [#/Vol] 2.4 E9/L Normal 1.0 - 4.0 E9/L [facility] Lymphocytes/100 WBC (Bld) 27.6 % Normal 14.0 - 50.0 % [facility] MCH (RBC) [Entitic mass] 29.5 pg Normal 27.0 - 34.0 pg [facility] MCHC (RBC) [Mass/Vol] 34.0 g/dL Normal 31.4 - 36.0 gm/dL [facility] MCV (RBC) [Entitic vol] 86.9 fL Normal 80.0 - 100.0 fL [facility] Monocytes (Bld) [#/Vol] 0.7 E9/L Normal 0.2 - 1.0 E9/L [facility] Monocytes/100 WBC (Bld) 7.7 % Normal 4.0 - 14.0 % [facility] Neutrophils (Bld) [#/Vol] 5.4 E9/L Normal 2.0 - 7.5 E9/L [facility] Neutrophils/100 WBC (Bld) 63.1 % Normal 36.0 - 75.0 % [facility] Platelet mean volume (Bld) [Entitic vol] 8.0 fL Normal 6.4 - 10.8 fL [facility] Platelets (Bld) [#/Vol] 218.0 E9/L Normal 150.0 - 500.0 E9/L [facility] RBC (Bld) [#/Vol] 5.3 E12/L Normal 4.3 - 5.9 E12/L [facility] WBC corrected for nucl RBC Auto (Bld) [#/Vol] 8.5 E9/L Normal 4.0 - 11.0 E9/L [facility] Hep Func Panelon 06-14-2024 Albumin [Mass/Vol] 4.6 g/dL Normal 3.3-5.0 [facility] Comment on above: Performed By: #### 2 [id number] #### [facility] [address] [place] [address] Albumin/Globulin (S) [Mass conc ratio] 1.3 Normal 1.1-2.2 [facility] Comment on above: Performed By: #### 2 [id number] #### [facility] [address] [place] [address] ALP [Catalytic activity/Vol] 93 Int._Unit/L Normal 21-98 [facility] Comment on above: Performed By: #### 2 [id number] #### [facility] [address] [place] [address] ALT No additional P-5'-P [Catalytic activity/Vol] 26 Int._Unit/L Normal 6-46 [facility] Comment on above: Performed By: #### 2 [id number] #### [facility] [address] [place] [address] AST [Catalytic activity/Vol] 23 Int._Unit/L Normal 5-43 [facility] Comment on above: Performed By: #### 2 [id number] #### [facility] [address] [place] [address] Bilirubin [Mass/Vol] 0.8 mg/dL Normal 0.0-1.1 [facility] Comment on above: Performed By: #### 2 [id number] #### [facility] [address] [place] [address] Bilirubin.direct [Mass/Vol] 0.1 mg/dL Normal 0.0-0.4 [facility] Comment on above: Performed By: #### 2 [id number] #### [facility] [address] [place] [address] Bilirubin.indirect [Mass or moles/Vol] 0.7 mg/dL Normal 0.1-0.9 [facility] Comment on above: Performed By: #### 2 [id number] #### [facility] [address] [place] [address] Globulin (S) [Mass/Vol] 3.5 g/dL Normal 1.4-4.0 [facility] Comment on above: Performed By: #### 2 [id number] #### [facility] [address] [place] [address] Protein [Mass/Vol] 8.1 g/dL High 6.0-7.8 [facility] Comment on above: Performed By: #### 2 [id number] #### [facility] [address] [place] [address] Lipid Panelon 06-14-2024 Cholesterol [Mass/Vol] 219 mg/dL High 120-200 [facility] Comment on above: Performed By: #### 2 [id number] #### [facility] [address] [place] [address] Cholesterol in HDL [Mass/Vol] 41 mg/dL Invalid Interpretation Code [facility] Comment on above: Result Comment: '>= 60 LOW RISK' '<= 40 HIGH RISK' Performed By: #### 2 [id number] #### [facility] [address] [place] [address] Cholesterol in LDL [Mass/Vol] 129 mg/dL Normal <=129 [facility] Comment on above: Performed By: #### 2 [id number] #### [facility] [address] [place] [address] Cholesterol in VLDL [Mass/Vol] 66 mg/dL High 7-40 [facility] Comment on above: Performed By: #### 2 [id number] #### [facility] [address] [place] [address] Triglyceride [Mass/Vol] 329 mg/dL High <=149 [facility] Comment on above: Performed By: #### 2 [id number] #### [facility] [address] [place] [address] PSA Screen, Totalon 06-14-20 24 Prostate specific Ag [Mass/Vol] 3.6 ng/mL High 0.1-3.5 [facility] Comment on above: Result Comment: The concentration of PSA determined by different manufacturers can vary due to differences in assay methods and reagent specificity. Values obtained from different assay methods cannot be used interchangeably. The methodology used for this result was chemiluminescence using [employer] Access Hybritech PSA reagent. Performed By: #### 1 [id number] ####[facility] [address] [place] [address] TSHon 06-14-2024 TSH Qn 2.31 m[IU]/L Normal 0.34-5.60 [facility] Comment on above: Performed By: #### 2 [id number] #### [facility] [address] [place] [address] eGFRon 06-14-2024 eGFR 97 mL/min/1.73 m2 Normal >=59 [facility] Comment on above: Order Comment: Order added by Discern Expert. Performed By: #### 1 [id number] #### [facility] [address] [place] [address] CHEMISTRYOrdered By: SYSTEM SYSTEM on 05-19-2023 Albumin [Mass/Vol] 4.6 g/dL Normal 3.3 - 5.0 gm/dL [facility] Remisol Albumin/Globulin [Mass ratio] 1.2 {ratio} Normal 1.1 - 2.2 [facility] ALP [Catalytic activity/Vol] 76 [iU]/d Normal 21 - 98 Int._Unit/L [facility] ALT No additional P-5'-P [Catalytic activity/Vol] 26 [iU]/d Normal 6 - 46 Int._Unit/L [facility] Anion gap [Moles/Vol] 11 mmol/L Normal 6 - 16 mEq/L [facility] AST [Catalytic activity/Vol] 25 [iU]/d Normal 5 - 43 Int._Unit/L [facility] Bilirubin [Mass/Vol] 1.1 mg/dL Normal 0.0 - 1 .1 mg/dL [facility] Calcium [Mass/Vol] 10.0 mg/dL Normal 8.9 - 11. 1 mg/dL [facility] Chloride [Moles/Vol] 107 mmol/L Normal 101 - 1 11 mmol/L [facility] Cholesterol [Mass/Vol] 200 mg/dL Normal 120 - 200 mg/dL [facility] Cholesterol in HDL [Mass/Vol] 48 mg/dL Invalid Interpretation Code [facility] Cholesterol in LDL [Mass/Vol] 132 mg/dL High <=129mg/dL [facility] Cholesterol in VLDL [Mass/Vol] 30 mg/dL Normal 7 - 40 mg/dL [facility] CO2 [Moles/Vol] 24 mmol/L Normal 21 - 31 mmol/L [facility] Creatinine [Mass/Vol] 0.9 mg/dL Normal 0.5 - 1.3 mg/dL [facility] GFR/1.73 sq M.predicted among non-blacks MDRD (S/P/Bld) [Vol rate/Area] 95 mL/min/1.73 m2 Normal >=59mL/min/ 1.73 m2 [facility] Chem S Globulin (S) [Mass/Vol] 3.9 g/dL Normal 1.4 - 4.0 gm/dL [facility] Glucose [Mass/Vol] 89 mg/dL Normal 55 - 199 mg/dL [facility] Potassium [Moles/Vol] 3.8 mmol/L Normal 3.5 - 5.3 mmol/L [facility] Prostate specific Ag [Mass/Vol] 2.4 ng/mL Normal 0.1 - 3.5 ng/mL [facility] Protein [Mass/Vol] 8.5 g/dL High 6.0 - 7.8 gm/dL [facility] Sodium [Moles/Vol] 138 mmol/L Normal 135 - 145 mmol/L [facility] Triglyceride [Mass/Vol] 151 mg/dL High <=149mg/dL [facility] TSH Qn 2.02 m[IU]/L Normal 0.34 - 5.60 mcIU/mL [facility] Urea nitrogen [Mass/Vol] 13 mg/dL Normal 5 - 21 mg/dL [facility] Urea nitrogen/Creatinine [Mass ratio] 14 mg/mg Normal 10 - 20 [facility] HEMATOLOGYOrdered By: SYSTEM SYSTEM on 05-19-2023 Basophils/100 WBC (Bld) 0.4 % Normal 0.0 - 2.0 % [facility] HemeAutoSS Basophils/Leukocytes Auto (Bld) [Pure # fraction] 0.0 E9/L Normal 0.0 - 0.2 E9/L [facility]eAutoSS Eosinophils/100 WBC (Bld) 1.3 % Normal 0.0 - 8.0 % [facility]eAutoSS Eosinophils/Leukocyt es Auto (Bld) [Pure # fraction] 0.1 E9/L Normal 0.0 - 0.5 E9/L [facility]eAutoSS Lymphocytes/100 WBC (Bld) 31.1 % Normal 14.0 - 50.0 % [facility]eAutoSS Lymphocytes/Leukocyt es Auto (Bld) [Pure # fraction] 2.1 E9/L Normal 1.0 - 4.0 E9/L [facility] HemeAutoSS Monocytes/100 WBC (Bld) 8.1 % Normal 4.0 - 14.0 % [facility] HemeAutoSS Monocytes/Leukocytes Auto (Bld) [Pure # fraction] 0.6 E9/L Normal 0.2 - 1.0 E9/L [facility]eAutoSS Neutrophils/100 WBC (Bld) 59.1 % Normal 36.0 - 75.0 % [facility]eAutoSS Neutrophils/Leukocyt es Auto (Bld) [Pure # fraction] 4.0 E9/L Normal 2.0 - 7.5 E9/L [facility]eAutoSS HEMATOLOGYOrdered By: Natalie Clay on 05-19-2023 Erythrocyte distribution width (RBC) [Ratio] 13.6 % Normal 10.9 - 14.2 % [facility] HemeAutoSS Hematocrit (Bld) [Volume fraction] 46.0 % Normal 37.7 - 49.0 % [facility] HemeAutoSS Hemoglobin (Bld) [Mass/Vol] 15.3 g/dL Normal 13.5 - 17.5 gm/dL [facility] HemeAutoSS MCH (RBC) [Entitic mass] 29.2 pg Normal 27.0 - 34.0 pg [facility] HemeAutoSS MCHC (RBC) [Mass/Vol] 33.2 g/dL Normal 31.4 - 36.0 gm/dL [facility]eAutoSS MCV (RBC) [Entitic vol] 87.9 fL Normal 80.0 - 100.0 fL [facility]eAutoSS Platelet mean volume (Bld) [Entitic vol] 8.0 fL Normal 6.4 - 10.8 fL [facility]eAutoSS Platelets (Bld) [#/Vol] 220.0 E9/L Normal 150.0 - 500.0 E9/L [facility]eAutoSS RBC (Bld) [#/Vol] 5.2 E12/L Normal 4.3 - 5.9 E12/L [facility] HemeAutoSS WBC corrected for nucl RBC Auto (Bld) [#/Vol] 6.8 E9/L Normal 4.0 - 11.0 E9/L [facility] HemeAutoSS CHEMISTRYOrdered By: SYSTEM SYSTEM on 06-26-2022 Anion gap [Moles/Vol] 12 mmol/L Normal 6 - 16 mEq/L [facility] Chloride [Moles/Vol] 103 mmol/L Normal 101 - 1 11 mmol/L [facility] CO2 [Moles/Vol] 26 mmol/L Normal 21 - 31 mmol/L [facility] Creatinine [Mass/Vol] 0.9 mg/dL Normal 0.5 - 1.3 mg/dL [facility] GFR/1.73 sq M.predicted among blacks MDRD (S/P/Bld) [Vol rate/Area] mL/min/1.73 m2 Normal >=59mL/min/ 1.[address] [facility] Chem S GFR/1.73 sq M.predicted among non-blacks MDRD (S/P/Bld) [Vol rate/Area] mL/min/1.73 m2 Normal >=59mL/min/ 1.[address] [facility] Chem S Glucose [Mass/Vol] 97 mg/dL Normal 55 - 199 mg/dL [facility] Rem[facility] Potassium [Moles/Vol] 3.8 mmol/L Normal 3.5 - 5.3 mmol/L [facility] Sodium [Moles/Vol] 137 mmol/L Normal 135 - 145 mmol/L [facility] Urea nitrogen [Mass/Vol] 12 mg/dL Normal 5 - 21 mg/dL [facility] Rem[facility] HEMATOLOGYOrdered By: Sejal Mckeon on 06-26-2022 Erythrocyte distribution width (RBC) [Ratio] 13.2 % Normal 10.9 - 14.2 % [facility]eAutoSS Hematocrit (Bld) [Volume fraction] 43.5 % Normal 37.7 - 49.0 % [facility]eAutoSS Hemoglobin (Bld) [Mass/Vol] 14.4 g/dL Normal 13.5 - 17.5 gm/dL [facility]eAutoSS MCH (RBC) [Entitic mass] 28.5 pg Normal 27.0 - 34.0 pg [facility]eAutoSS MCHC (RBC) [Mass/Vol] 33.1 g/dL Normal 31.4 - 36.0 gm/dL [facility]eAutoSS MCV (RBC) [Entitic vol] 86.1 fL Normal 80.0 - 100.0 fL [facility]eAutoSS Platelet mean volume (Bld) [Entitic vol] 8.3 fL Normal 6.4 - 10.8 fL [facility]eAutoSS Platelets (Bld) [#/Vol] 229.0 E9/L Normal 150.0 - 500.0 E9/L [facility]eAutoSS RBC (Bld) [#/Vol] 5.0 E12/L Normal 4.3 - 5.9 E12/L [facility]eAutoSS WBC corrected for nucl RBC Auto (Bld) [#/Vol] 5.4 E9/L Normal 4.0 - 11.0 E9/L [facility] HemeAutoSS Vital Signs Date Time Vital Sign Value Performing Clinician Facility 08-04-2024 09:39-0500 Blood Pressure Location PAULINA MORGAN [facility] 08-04-2024 09:39-0500 Body temperature 98.6 [degF] PAULINA EDDIE [facility] 08-04-2024 09:39-0500 Diastolic blood pressure 84 mm[Hg] PAULINA EDDIE [facility] 08-04-2024 09:39-0500 Heart rate 75 /min PAULINA EDDIE [facility] 08-04-2024 09:39-0500 Respiratory rate 16 /min PAULINA EDDIE [facility] 08-04-2024 09:39-0500 Systolic blood pressure 138 mm[Hg] PAULINA EDDIE [facility] 07-20-2024 10:25-0400 Blood Pressure Location [email or web address] [facility] [employer] [facility] 07-20-2024 10:25-0400 Diastolic blood pressure 90 mm[Hg] Mohamad Mouchli [facility] 07-20-2024 10:25-0400 Heart rate 75 /min Mohamad Mouchli [facility] 07-20-2024 10:25-0400 Respiratory rate 15 /min Mohamad Mouchli [facility] 07-20-2024 10:25-0400 SaO2% (BldA) [Mass fraction] 94 % Mohamad Mouchli [facility] 07-20-2024 10:25-0400 Systolic blood pressure 131 mm[Hg] Mohamad Mouchli [facility] 07-20-2024 10:14-0400 Blood Pressure Location Mohamad Mouchli [facility] 07-20-2024 10:14-0400 Diastolic blood pressure 86 mm[Hg] Mohamad Mouchli [facility] 07-20-2024 10:14-0400 Heart rate 86 /min Mohamad Mouchli [facility] 07-20-2024 10:14-0400 Respiratory rate 13 /min Mohamad Mouchli [facility] 07-20-2024 10:14-0400 SaO2% (BldA) [Mass fraction] 94 % Mohamad Mouchli [facility] 07-20-2024 10:14-0400 Systolic blood pressure 119 mm[Hg] Mohamad Mouchli [facility] 07-20-2024 10:09-0400 Blood Pressure Location Mohamad Mouchli [facility] 07-20-2024 10:09-0400 Diastolic blood pressure 73 mm[Hg] Mohamad Mouchli [facility] 07-20-2024 10:09-0400 Heart rate 78 /min Mohamad Mouchli [facility] 07-20-2024 10:09-0400 Respiratory rate 18 /min Mohamad Mouchli [facility] 07-20-2024 10:09-0400 SaO2% (BldA) [Mass fraction] 92 % Mohamad Mouchli [facility] 07-20-2024 10:09-0400 Systolic blood pressure 96 mm[Hg] Mohamad Mouchli [facility] 07-20-2024 09:59-0400 Body temperature 97.88 [degF] Mohamad Mouchli [facility] 07-20-2024 09:55-0400 Respiratory rate 12 /min Mohamad Mouchli [facility] 07-20-2024 09:40-0400 Respiratory rate 12 /min Mohamad Mouchli [facility] 07-20-2024 08:39-0400 Body temperature 97.88 [degF] Mohamad Mouchli [facility] 07-07-2024 08:37-0400 Blood Pressure Location Mohamad Mouchli [facility] 07-07-2024 08:37-0400 Diastolic blood pressure 90 mm[Hg] Mohamad Mouchli [facility] 07-07-2024 08:37-0400 Heart rate 77 /min Mohamad Mouchli [facility] 07-07-2024 08:37-0400 Respiratory rate 16 /min Mohamad Mouchli [facility] 07-07-2024 08:37-0400 Systolic blood pressure 167 mm[Hg] Mohamad Mouchli [facility] 06-14-2024 13:53-0400 Blood Pressure Location Alejo KAPLE [facility] 06-14-2024 13:53-0400 Body temperature 97.88 [degF] Alejo KAPLE [facility] 06-14-2024 13:53-0400 Diastolic blood pressure 68 mm[Hg] Alejo KAPLE [facility] 06-14-2024 13:53-0400 Heart rate 82 /min Alejo PECKLE [facility] 06-14-2024 13:53-0400 Respiratory rate 16 /min Alejo PECKLE [facility] 06-14-2024 13:53-0400 SaO2% (BldA) [Mass fraction] 97 % Alejo PECKLE [facility] 06-14-2024 13:53-0400 Systolic blood pressure 120 mm[Hg] Alejo PECKLE [facility] 05-24-2023 09:25-0400 Body height 187.96 cm Vidhya Reed Other [employer] Other 05-24-2023 09:25-0400 Body mass index (BMI) [Ratio] 29.42 kg/m2 Vidhya Reed Other [employer] Other 05-24-2023 09:25-0400 Body temperature 97.7 [degF] Vidhya Reed Other [employer] Other 05-24-2023 09:25-0400 Body weight 103.97 kg Vidhya Reed Other [employer] Other 05-24-2023 09:25-0400 Diastolic blood pressure 88 mm[Hg] Vidhya Reed Other [employer] Other 05-24-2023 09:25-0400 Respiratory rate 18 /min Vidhya Reed Other [employer] Other 05-24-2023 09:25-0400 SaO2% (BldA) [Mass fraction] 95 % Vidhya Reed Other [employer] Other 05-24-2023 09:25-0400 Systolic blood pressure 154 mm[Hg] Vidhya Reed Other [facility] [employer] Other 05-19-2023 13:01-0400 Blood Pressure Location Krysta Burnett [facility] 05-19-2023 13:01-0400 Body temperature 97.16 [degF] Krysta Burnett [facility] 05-19-2023 13:01-0400 Diastolic blood pressure 86 mm[Hg] Krysta Burnett [facility] 05-19-2023 13:01-0400 Heart rate 79 /min Krysta Burnett [facility] 05-19-2023 13:01-0400 SaO2% (BldA) [Mass fraction] 95 % Krysta Burnett [facility] 05-19-2023 13:01-0400 Systolic blood pressure 158 mm[Hg] Krysta Burnett [facility] 08-07-2022 07:39-0500 Blood Pressure Location Alejo KAPLE [facility] 08-07-2022 07:39-0500 Diastolic blood pressure 80 mm[Hg] Alejo KAPLE [facility] 08-07-2022 07:39-0500 Heart rate 74 /min Alejo KAPLE [facility] 08-07-2022 07:39-0500 SaO2% (BldA) [Mass fraction] 98 % Alejo KAPLE [facility] 08-07-2022 07:39-0500 Systolic blood pressure 130 mm[Hg] Alejo BRADLEY [facility] 07-09-2022 16:24-0400 Blood Pressure Location Talon Mokatey [facility] 07-09-2022 16:24-0400 BP/Pulse Patient Position Talon Mourany [facility] 07-09-2022 16:24-0400 Diastolic blood pressure 88 mm[Hg] Talon Mourany [facility] 07-09-2022 16:24-0400 Heart rate 94 /min Talon Mourany [facility] 07-09-2022 16:24-0400 Mean blood pressure 112 mm[Hg] Talon Mourany [facility] 07-09-2022 16:24-0400 Respiratory rate 18 /min Talon Mourany [facility] 07-09-2022 16:24-0400 SaO2% (BldA) [Mass fraction] 94 % Talon Mourany [facility] 07-09-2022 16:24-0400 Systolic blood pressure 160 mm[Hg] Talon Mourany [facility] 07-09-2022 15:32-0400 Blood Pressure Location Talon Mourany [facility] 07-09-2022 15:32-0400 BP/Pulse Patient Position Talon Mourany [facility] 07-09-2022 15:32-0400 Diastolic blood pressure 73 mm[Hg] Talon Mourany [facility] 07-09-2022 15:32-0400 Heart rate 83 /min Talon Mourany [facility] 07-09-2022 15:32-0400 Mean blood pressure 94 mm[Hg] Talon Mourany [facility] 07-09-2022 15:32-0400 Respiratory rate 18 /min Talon Mourany [facility] 07-09-2022 15:32-0400 SaO2% (BldA) [Mass fraction] 94 % Talon Mourany [facility] 07-09-2022 15:32-0400 Systolic blood pressure 136 mm[Hg] Talon Mourany [facility] 07-09-2022 13:36-0400 Blood Pressure Location Talon Mourany [facility] 07-09-2022 13:36-0400 BP/Pulse Patient Position Talon Mourany [facility] 07-09-2022 13:36-0400 Diastolic blood pressure 85 mm[Hg] Talon Mourany [facility] 07-09-2022 13:36-0400 Heart rate 74 /min Talon Mourany [facility] 07-09-2022 13:36-0400 Mean blood pressure 111 mm[Hg] Talon Mourany [facility] 07-09-2022 13:36-0400 Respiratory rate 18 /min Talon Mourany [facility] 07-09-2022 13:36-0400 SaO2% (BldA) [Mass fraction] 92 % Talon Mourany [facility] 07-09-2022 13:36-0400 Systolic blood pressure 161 mm[Hg] Talon Mourany [facility] 07-09-2022 13:27-0400 Body temperature 97.34 [degF] Talon Mourany [facility] 07-09-2022 13:27-0400 Respiratory rate 14 /min Talon Mourany [facility] 07-09-2022 13:15-0400 Respiratory rate 20 /min Talon Mourany [facility] 07-09-2022 13:10-0400 Respiratory rate 22 /min Talon Mourany [facility] 07-09-2022 12:59-0400 Body temperature 97.7 [degF] Talon Mourany [facility] 07-09-2022 08:41-0400 Body temperature 97.88 [degF] Talon Mourany [facility] 07-09-2022 08:41-0400 Heart rate 74 /min Talon Jonathanurany [facility] 07-01-2022 14:47-0400 Diastolic blood pressure 88 mm[Hg] Christianaaracely MontesMelissa [facility] 07-01-2022 14:47-0400 Mean blood pressure 104 mm[Hg] Christianaaracely MontesMelissa [facility] 07-01-2022 14:47-0400 Systolic blood pressure 136 mm[Hg] Christiana Melissa [facility] 07-01-2022 14:44-0400 Blood Pressure Location Christiana Melissa [facility] 07-01-2022 14:44-0400 Body temperature 97.7 [degF] Christianaaracely MontesMelissa [facility] 07-01-2022 14:44-0400 Diastolic blood pressure 78 mm[Hg] Christiana Torres [facility] 07-01-2022 14:44-0400 Heart rate 74 /min Christiana Torres [facility] 07-01-2022 14:44-0400 Systolic blood pressure 147 mm[Hg] Christiana Torres [facility] 06-26-2022 12:37-0400 Blood Pressure Location Talon Castilloclayton [facility] 06-26-2022 12:37-0400 Body temperature 97.88 [degF] Talon Seayy [facility] 06-26-2022 12:37-0400 Diastolic blood pressure 85 mm[Hg] Talon Seayy [facility] 06-26-2022 12:37-0400 Heart rate 74 /min Talon Seayy [facility] 06-26-2022 12:37-0400 Mean blood pressure 107 mm[Hg] Talon Seayy [facility] 06-26-2022 12:37-0400 Respiratory rate 18 /min Talon eSayy [facility] 06-26-2022 12:37-0400 SaO2% (BldA) [Mass fraction] 98 % Talon Castillourany [facility] 06-26-2022 12:37-0400 Systolic blood pressure 152 mm[Hg] Talon Seayy [facility] 06-26-2022 12:36-0400 Blood Pressure Location Talon Castillourany [facility] 06-26-2022 12:36-0400 Diastolic blood pressure 85 mm[Hg] Talon Seayy [facility] 06-26-2022 12:36-0400 Systolic blood pressure 155 mm[Hg] Talon Will [facility] 06-17-2022 09:14-0400 Blood Pressure Location Talon Castillokateolimpia [facility] [place] 06-17-2022 09:14-0400 Diastolic blood pressure 82 mm[Hg] Talno Castillokateolimpia [facility] 06-17-2022 09:14-0400 Heart rate 69 /min Talon Will [facility] 06-17-2022 09:14-0400 SaO2% (BldA) [Mass fraction] 98 % Talon Jonathanclayton [facility] 06-17-2022 09:14-0400 Systolic blood pressure 150 mm[Hg] Talon Dawoodolimpia [facility] 05-06-2022 15:46-0400 Diastolic blood pressure 84 mm[Hg] Christiana Torres [facility] 05-06-2022 15:46-0400 Mean blood pressure 103 mm[Hg] Christaina Torres [facility] 05-06-2022 15:46-0400 Systolic blood pressure 140 mm[Hg] Christiana Montesmetz [facility] 05-06-2022 15:43-0400 Blood Pressure Location Christiana [facility] 05-06-2022 15:43-0400 Body temperature 97.52 [degF] Christiana Torres [facility] 05-06-2022 15:43-0400 Diastolic blood pressure 84 mm[Hg] Christiana Torres [facility] 05-06-2022 15:43-0400 Heart rate 76 /min Christiana Torres [facility] 05-06-2022 15:43-0400 SaO2% (BldA) [Mass fraction] 98 % Christiana Torres [facility] 05-06-2022 15:43-0400 Systolic blood pressure 149 mm[Hg] Christiana Torres [facility] 05-01-2022 11:14-0400 Blood Pressure Location Britt Hardinell [facility] 05-01-2022 11:14-0400 Body temperature 97.34 [degF] Britt Lara [facility] 05-01-2022 11:14-0400 Diastolic blood pressure 72 mm[Hg] Britt Lara [facility] 05-01-2022 11:14-0400 Heart rate 86 /min Britt Lara [facility] 05-01-2022 11:14-0400 SaO2% (BldA) [Mass fraction] 97 % Britt Lara [facility] 05-01-2022 11: Systolic blood pressure 136 mm[Hg] Britt Lara [facility] Encounters Encounter Date Encounter Type Care Provider Facility Start: 06-16-2025 ambulatory Alejo A RICK Facility: [facility] Start: 08-04-2024 End: 08-04-2024 ambulatory Alejo A RICK Facility:[facility] Start: 08-04-2024 End: 08-04-2024 Patient encounter procedure PAULINA MORGAN [facility] Start: 07-20-2024 End: 07-20-2024 ambulatory Melonyd Yesenia Guzman Facility:[facility] Start: 07-20-2024 End: 07-20-2024 Patient encounter procedure Trixie Guzman [facility] Start: 07-07-2024 End: 07-07-2024 ambulatory Trixie AMahi Guzman Facility:[facility] Start: 07-07-2024 End: 07-07-2024 Patient encounter procedure Trixie Guzman [facility] Start: 06-29-2024 ambulatory Mohdebid Rowdyli Facilit y:[facility] Start: 06-14-2024 End: 06-14-2024 ambulatory Alejo A KAPANDRE Facility:[facility] Start: 06-14-2024 End: 06-14-2024 Patient encounter procedure Alejo A RICK [facility] Start: 06-14-2024 End: 06-14-2024 Well adult monitoring check done Alejo BRADLEY [facility] Start: 05-24-2023 End: 05-24-2023 ambulatory Vidhya Reed Other [place] [employer] Other Start: 05-24-2023 Office outpatient ne w 20 minutes Vidhya Reed [facility] Start: 05-19-2023 End: 05-19-2023 Patient encounter procedure Krysta Burnett [facility] Start: 05-19-2023 End: 05-19-2023 Patient encounter procedure Krysta Burnett [facility] Start: 05-19-2023 End: 05-19-2023 Well adult monitoring check done Krysta Burnett [facility] Start: 04-06-2023 End: 04-06-2023 Patient encounter procedure Christiana Torres [facility] Start: 08-07-2022 End: 08-07-2022 Patient encounter procedure Alejo BRADLEY [facility] Start: 08-07-2022 End: 08-07-2022 Well adult monitoring check done Alejo BRADLEY [facility] Start: 07-29-2022 End: 07-29-2022 Patient encounter procedure Talon Solis [facility] [place] Start: 07-09-2022 End: 07-09-2022 Admission to same day surgery center Talon Solis [facility] Start: 07-01-2022 End: 07-01-2022 Patient encounter procedure Christiana Torres [facility] Start: 06-26-2022 End: 06-26-2022 Patient encounter procedure Talon Solis [facility] Start: 06-17-2022 End: 06-17-2022 Patient encounter procedure Talon Solis [facility] [place] Start: 05-06-2022 End: 05-06-2022 Patient encounter procedure Christiana Torres [facility] Start: 05-01-2022 End: 05-01-2022 Patient encounter procedure Britt Lara [facility] Procedures Date Procedure Procedure Detail Performing Clinician Start: 07-20-2024 Colonoscopy Trixie mack Start: 07-09-2022 Repair of left ingui nal hernia Talon Solis Comment on above: Left robotic assiste d inguinal hernia repair Start: 09-28-2021 Colonoscopy PAULINA PEREZ Start: 05-03-2012 Colonoscopy Christiana Jyoti andersonz None (qualifier value) Gunner Lara Plan of Treatment Date Care Activity Detail Author Start: 08-17-2024 ambulatory Ambulatory Facility:[facility] Immunizations Immunization Date Immunization Notes Care Provider Yamileth jodiebebeto 12-17-2021 SARS-CoV-2 mRNA (wgzjrfiyivx-ppdw-caa dolly) vaccine Britt Marco [facility] 11-23-2021 SARS-CoV-2 mRNA (eqdzjstvhof-oqqy-cub dolly) vaccine Britt Marco [facility] 11-23-2021 tetanus toxoid, reduced diphtheria toxoid, and acellular pertussis vaccine, adsorbed Britt Lara [facility] NEGATED: Highlighted row has not occurred!06-14-2024 influenza virus vaccine, unspecified formulation Alejo BRADLEY [facility] NEGATED: Highlighted row has not occurred!08-07-2022 influenza virus vaccine, unspecified formulation Alejo BRADLEY [facility] NEGATED: Highlighted row has not occurred!07-01-2022 influenza virus vaccine, unspecified formulation Christiana Torres [facility] NEGATED: Highlighted row has not occurred!06-17-2022 influenza virus vaccine, unspecified formulation Talon Solis [facility] [place] NEGATED: Highlighted row has not occurred!05-06-2022 influenza virus vaccine, unspecified formulation Christiana Torres [facility] Payers Date Payer Category Payer Unknown [id number] 2022 [place] [id number] 1955 Unknown [id number] 1955 Unknown [id number] 2.16.8 [id number] 1957 Unknown [id number] 2.16.8 [id number] 1957 Unknown [id number] 2.16.8 [id number] 1957 Unknown [id number] 2.16.8 [id number] 1957 Unknown [id number] 2.16.8 [id number] 1957 Unknown [id number] [id number] [id number] Social History Date Type Detail Facility Start: 05-01-2022 End: 06-14-2024 Tobacco smoking status Never smoked tobacco (finding) [facility] Tobacco smoking status Never [facility] Sex Assigned At Male [facility] Medical Equipment Procedure Code Equipment Code Equipment Origin al Text Equipment Identifier Dates HERNIA REPAIR, R OBOT ASSISTED Talon Solis MD 07/09/22 Unknown Abdomen {[id number] {[id number]}02 FDA Start: 07-09-2022 Functional Status Date Assessment Result Facility 08-04-2024 Functional Status N/A [facility] 07-20-2024 Functional Status N/A [facility] 07-07-2024 Functional Status N/A [facility] 06-14-2024 Functional Status N/A [facility] 05-19-2023 Functional Status N/A [facility] 08-07-2022 Functional Status N/A [facility] 07-01-2022 Functional Status N/A [facility] 06-26-2022 Functional Status No [facility] 06-26-2022 Functional Status COVID-19 Vaccine Yes Fi [facility] 06-17-2022 Functional Status N/A [facility] [place] 05-06-2022 Functional Status N/A [facility] 05-01-2022 Functional Status N/A [facility] Clinical Notes 05-01-2022 to 08-07-2024 Note Date & Type Note Facility 08-07-2024 Note Urology Office/Clini c Note Chief Complaint referral for elevated PSA HPI Staff 69yr old male pt referred by Dr. Bradley for elevated PSA. PSA: 06/08/21 - 2.1 05/19/23 - 2.4 06/14/24 - 3.6 Dysuria: denies Incomplete bladder emptying: denies Hematuria: denies Frequency: denies Urgency: denies Nocturia: 2x states it is due to his dogs waking him up Stream: good steady stream Leaking: denies Post void dripping: denies Wearing pads/ Depends: denies Urge incontinence: denies Stress incontinence: denies Incontinence without Sensory Awareness: denies Abdominal pain: denies Flank pain: denies Sexual complaints: denies Review of Systems PHQ Score Initial Depression Screen Score: 0 SCORE no fever, chills, malaise, myalgia. no rash/lesions. no chest pain, palpitations, or SOB. no abdominal pain, nausea, vomiting. no unilateral calf swelling, redness, pain Physical Exam Vitals & Measurements T: 37 ???C(Temporal Artery) HR: 75(Peripheral) RR: 16 BP: 138/84 HT: 74 in HT: 189 cm WT: 105 kg WT: 231 lb BMI: 29.39 General: nontoxic, NAD Mouth: moist mucosa Lungs: normal respiratory effort Cardio: regular rate, good distal perfusion Abdomen: nondistended, no suprapubic distention or tenderness, no CVA tenderness Neurologic: Grossly normal Skin: No rashes or suspicious lesion TITUS: benign. no asymmetry, induration, nodules. Assessment/Plan 1. Elevated PSA (R97.20: Elevated prostate specific antigen [PSA]) 04/30/12 - 2.6 03/01/13 - 2.3 06/08/21 - 2.1 05/19/23 - 2.4 06/14/24 - 3.6 Neg TITUS. Neg fam hx. When you look at the last 3 values, it's a little concerning bc it looks like a steady rise, however when you look back farther his PSA actually fluctuates a bit. Overall he's still WNL. I discussed the pros and cons of PSA with the patient today. The various causes of PSA elevation were outlined, including prostate cancer, prostate enlargement, infection of the prostate, inflammation without infection, as well as prostate manipulation. The options regarding this PSA elevation, including prostate biopsy versus close monitoring, versus obtaining an MRI of the prostate were discussed. The patient has decided upon close monitoring. Will recheck PSA in 6 mos. If drops back down, we will just continue q6mo monitoring for a while. If increases further, will consider MRI. Follow-up With When Contact Information EDDIE TA, PAULINA Barros, ALAN Within 6 months [address] 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 Medications No active medications Allergies No Known Allergies Social History Alcohol - Low Risk, 04/29/2019 Current. Liquor. 1-2 times per month., 08/03/2024 Substance Abuse - Denies Substance Abuse, 04/29/2019 Never., 08/03/2024 Tobacco - Denies Tobacco Use, 04/29/2019 Never (less than 100 in lifetime) Tobacco Use:. Never Smokeless Tobacco Use:. Household tobacco concerns: No., 08/04/2024 Never (less than 100 in lifetime) Tobacco Use:., 08/03/2024 Family History Family history is negative Immunizations Vaccine Date Status Comments influenza virus vaccine, inactivated - Not Given Patient Refuses influenza virus vaccine, inactivated - Not Given Postpone due to refusal influenza virus vaccine, inactivated - Not Given Patient Refuses influenza virus vaccine, inactivated - Not Given Postpone due to refusal influenza virus vaccine, inactivated - Not Given Patient Refuses SARSCoV2 mRNA(iwlwrihbq-ogiq-sszopf) vac 12/17/2021 Recorded diphtheria/pertussis, acel/tetanus adult 11/23/2021 Recorded SARSCoV2 mRNA(kknaxdonk-rdoc-ophjwv) vac 11/23/2021 Recorded [facility] Comment on above: Result Comment: Elec tronically Signed By: PAULINA MORGAN PA-C.br\Date and Time Signed: 08/07/24 22:50 EST 08-07-2024 Note Patient Education Oncology Prostate Cancer Screening Prostate cancer screening is testing that is done to check for the presence of prostate cancer in men. The prostate gland is a walnut-sized gland that is located below the bladder and in front of the rectum in males. The function of the prostate is to add fluid to semen during ejaculation. Prostate cancer is one of the most common types of cancer in men. Who should have prostate cancer screening? Screening recommendations vary based on age and other risk factors, as well as between the professional organizations who make the recommendations. In general, screening is recommended if: ??? You are age 50 to 70 and have an average risk for prostate cancer. You should talk with your health care provider about your need for screening and how often screening should be done. Because most prostate cancers are slow growing and will not cause , screening in this age group is generally reserved for men who have a 10- to 15-year life expectancy. ??? You are younger than age 50, and you have these risk factors: ? Having a father, brother, or uncle who has been diagnosed with prostate cancer. The risk is higher if your family member's cancer occurred at an early age or if you have multiple family members with prostate cancer at an early age. ? Being a male who is Black or is of [place] or sub-Saharan descent. In general, screening is not recommended if: ??? You are younger than age 40. ??? You are between the ages of 40 and 49 and you have no risk factors. ??? You are 70 years of age or older. At this age, the risks that screening can cause are greater than the benefits that it may provide. If you are at high risk for prostate cancer, your health care provider may recommend that you have screenings more often or that you start screening at a younger age. How is screening for prostate cancer done? The recommended prostate cancer screening test is a blood test called the prostate-specific antigen (PSA) test. PSA is a protein that is made in the prostate. As you age, your prostate naturally produces more PSA. Abnormally high PSA levels may be caused by: ??? Prostate cancer. ??? An enlarged prostate that is not caused by cancer (benign prostatic hyperplasia, or BPH). This condition is very common in older men. ??? A prostate gland infection (prostatitis) or urinary tract infection. ??? Certain medicines such as male hormones (like testosterone) or other medicines that raise testosterone levels. A rectal exam may be done as part of prostate cancer screening to help provide information about the size of your prostate gland. When a rectal exam is performed, it should be done after the PSA level is drawn to avoid any effect on the results. Depending on the PSA results, you may need more tests, such as: ??? A physical exam to check the size of your prostate gland, if not done as part of screening. ??? Blood and imaging tests. ??? A procedure to remove tissue samples from your prostate gland for testing (biopsy). This is the only way to know for certain if you have prostate cancer. What are the benefits of prostate cancer screening? Screening can help to identify cancer at an early stage, before symptoms start and when the cancer can be treated more easily. ??? There is a small chance that screening may lower your risk of dying from prostate cancer. The chance is small because prostate cancer is a slow-growing cancer, and most men with prostate cancer from a different cause. What are the risks of prostate cancer screening? The main risk of prostate cancer screening is diagnosing and treating prostate cancer that would never have caused any symptoms or problems. This is called overdiagnosisand overtreatment. PSA screening cannot tell you if your PSA is high due to cancer or a different cause. A prostate biopsy is the only procedure to diagnose prostate cancer. Even the results of a biopsy may not tell you if your cancer needs to be treated. Slow-growing prostate cancer may not need any treatment other than monitoring, so diagnosing and treating it may cause unnecessary stress or other side effects. Questions to ask your health care provider ??? When should I start prostate cancer screening? What is my risk for prostate cancer? How often do I need screening? What type of screening tests do I need? How do I get my test results? What do my results mean? Do I need treatment? Where to find more information ??? The [place] [employer]: www.cancer.org ??? [place] [employer] Association: www.auanet.org Contact a health care provider if: ??? You have difficulty urinating. ??? You have pain when you urinate or ejaculate. ??? You have blood in your urine or semen. ??? You have pain in your back or in the area of your prostate. Summary ??? Prostate cancer is a common type of cancer in men. The prostate gland (more content not included)... [facility] 07-20-2024 Evaluation + Plan note Extrac britta from: Title:[facility] Post General Author:Luis E Rosario DO Date:07/20/24 Plan Transfer/Discharge: Patient exhibiting no signs of N/V. Hydration status is adequate. Extracted from: Title:[facility] PRE Author:Adrián Rosario DO Date:07/20/24 Plan [place] [employer] Anesthesiologists (ASA) physical status classification: Class II. Anesthetic Preoperative Plan: Anesthesia General. Future Appointments Appointment Date:08/04/2024 09:40:00 AM Scheduled Provider:PAULINA MORGAN PA-C Location:[facility] Appointment Type:URO New Patient Appointment Date:08/17/2024 12:45:00 PM Scheduled Provider:Trixie Guzman MD Location:[facility] Appointment Type:[facility] Follow Up Appointment Date:06/16/2025 07:40:00 AM Scheduled Provider:Alejo BRADLEY DO, FAAFP Location:[facility] Appointment Type:FM Preventative Visit [facility] 10-23-2024 Hospital Discharge instructions Patient Education 07/20/2024 10:07:14 Colonoscopy, Care After Surgery Salam (CUSTOM) Colonoscopy Care After Surgery Please read the instructions outlined below and refer to this sheet in the next few weeks. These discharge instructions provide you with general information on caring for yourself after you leave thespital. Your doctor may also give you specific instructions. While your treatment has been planned according to the most current medical practices available, unavoidable complications occasionally occur. If you have any problems or questions after discharge, please call your doctor. ACTIVITY You may resume your regular activity, but move at a slower pace for the next 24 hours. Take frequent rest periods for the next 24 hours. Walking will help get rid of the air and reduce the bloated feeling in your abdomen (belly). No driving for 24 hours (because of the anesthesia (medicine) used during the test). You may shower. Do not sign any important legal documents or operate any machinery for 24 hours (because of the anesthesia used during the test). NUTRITION Drink plenty of fluids. You may resume your normal diet as instructed by your doctor. Begin with a light meal and progress to your normal diet. Heavy or fried foods are harder to digestand may make you feel nauseated (sick to your stomach). Avoid alcoholic beverages for 24 hours or as instructed. MEDICATIONS You may resume your normal medications unless your doctor tells you otherwise. WHAT YOU CAN EXPECT TODAY Some feelings of bloating in the abdomen. Passage of more gas than usual. Spotting of blood in your stool or on the toilet paper. FOLLOW-UP Your doctor will discuss the results of your test with you. SEEK IMMEDIATE MEDICAL ATTENTION IF: There is more than a spotting of blood in your stool. There is abdominal distention (your abdomen is swollen). There is vomiting. You have a temperature over 101.5 F. There is abdominal pain or discomfort that is severe or gets worse throughout the day. 07/20/2024 10:07:09 Hemorrhoids, Tdfu-ob-Jump Hemorrhoids Hemorrhoids are swollen veins that may form: In the butt (rectum). These are called internal hemorrhoids. Around the opening of the butt (anus). These are called external hemorrhoids. Most hemorrhoids do not cause very bad problems. They often get better with changes to your lifestyle and what you eat. What are the causes? Having trouble pooping (constipation) or watery poop (diarrhea). Pushing too hard when you poop. . Being very overweight (obese). Sitting for too long. Riding a bike for a long time. Heavy lifting or other things that take a lot of effort. Anal sex. What are the signs or symptoms? Pain. Itching or soreness in the butt. Bleeding from the butt. Leaking poop. Swelling. One or more lumps around the opening of your butt. How is this treated? In most cases, hemorrhoids can be treated at home. You may be told to: Change what you eat. Make changes to your lifestyle. If these treatments do not help, you may need to have a procedure done. Your doctor may need to: Place rubber bands at the bottom of the hemorrhoids to make them fall off. Put medicine into the hemorrhoids to shrink them. Shine a type of light on the hemorrhoids to cause them to fall off. Do surgery to get rid of the hemorrhoids. Follow these instructions at home: Medicines Take iqbk-fwk-hcdoyxc and prescription medicines only as told by your doctor. Use creams with medicine in them or medicines that you put in your butt as told by your doctor. Eating and drinking Eat foods that have a lot of fiber in them. These include whole grains, beans, nuts, fruits, and vegetables. Ask your doctor about taking products that have fiber added to them (fibersupplements). Take in less fat. You can do this by: ?Eating low-fat dairy products. ?Eating less red meat. ?Staying away from processed foods. Drink enough fluid to keep your pee (urine) pale yellow. Managing pain and swelling Take a warm-water bath (sitz bath) for 20 minutes to ease pain. Do this 3 4 times a day. You may dothis in a bathtub. You may also use a portable sitz bath that fits over the toilet. If told, put ice on the painful area. It may help to use ice between your warm baths. ?Put ice in a plastic bag. ?Place a towel between your skin and the bag. ?Leave the ice on for 20 minutes, 2 3 times a day. If your skin turns bright red, take off the ice right away to prevent skin damage. The risk of damage is higher if you cannot feel pain, heat, or cold. General instructions Exercise. Ask your doctor how much and what kind of exercise is best for you. Go to the bathroom when you need to poop. Do not wait. Try not to push too hard when you poop. Keep your butt dry and clean. Use wet toilet paper or moist towelettes after you poop. Do not sit on the toilet for a long time. Contact a doctor if: You have pain and swelling that do not get better with treatment. You have trouble pooping. You cannot poop. You have pain or swelling outside the area of the hemorrhoids. Get help right away if: You have bleeding from the butt that will not stop. This information is not intended to replace advice given to you by your health care provider. Make sure you discuss any questions you have with your health care provider. Document Revised: 05/27/2023 Document Reviewed: 05/27/2023 [employer] Patient Education 2023 [employer]. Follow Up Care 07/07/2024 10:43:56 With:Megan RAMIREZ, Trixie Patterson [facility], [facility] Address: [address] [place] [address] [address] [place] [address]- [phone] When: Unknown Comments:Office will call to schedule follow up appointment and/or review any pending biopsy resultsCall forany problems. [facility] 10-23-2024 NoteProgress Note-Physician Patient: NEELIMA JACOBSON Age: 68 years Sex: Male : 1955 Associated Diagnoses: None Author: Farhad Rosario DO Postoperative Information Postoperative disposition: Postoperative disposition: To PACU. Anesthetic utilized: General. Health Status Allergies: Allergic Reactions (Selected) No Known Allergies Current medications: (Selected) Inpatient Medications Ordered Lactated Ringers IV Kiara 1000 mL 1,000 mL: 1,000 mL, IV, 100 mL/hr, Routine, Start date 07/20/24 8:48:00 EDT, 10 hour(s), Total volume (mL): 1,000, 109 kg, 2.38, m2 Sodium Chloride 0.9% IV Kiara 1000 mL 1,000 mL: 1,000 mL, IV, 20 mL/hr, Routine, Start date 07/20/24 6:37:00 EDT, 50 hour(s), Total volume (mL): 1,000, 109 kg, 2.38, m2, No qualifying data available Problem list: All Problems BMI 29.0-29.9,adult / SNOMED CT 74653649 / Confirmed Cerumen debris on tympanic membrane of right ear / SNOMED CT 563041 / Confirmed Colon cancer screening / SNOMED CT 013851178 / Confirmed Diverticulosis / SNOMED CT 9647087242 / Confirmed Elevated serum protein level / SNOMED CT 970848505 / Confirmed Epidermoid cyst of skin of back / SNOMED CT 7994928053 / Confirmed Left inguinal hernia / SNOMED CT 466151628 / Confirmed 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 / SNOMED CT 9194968699 / Confirmed Meniscal injury / SNOMED CT 516360681 / Confirmed Non-smoker / SNOMED CT 78012774 / Confirmed Obesity / SNOMED CT 7112953669 / Confirmed PSA elevation / SNOMED CT 4752722751 / Confirmed Right knee pain / SNOMED CT 20323012 / Confirmed Screen for colon cancer / SNOMED CT 513889074 / Confirmed Screening PSA (prostate specific antigen) / SNOMED CT 603307970 / Confirmed Well adult health check / SNOMED CT 750088471 / Confirmed Resolved: Cellulitis, face / SNOMED CT 501875595 Resolved: Class 1 obesity with body mass index (BMI) of 30.0 to 30.9 in adult / SNOMED CT 4517256686 Resolved: None / SNOMED CT 525997851 Resolved: Sebaceous cyst / SNOMED CT 4550506413 Canceled: Adult BMI 30.0-30.9 kg/sq m / SNOMED CT 318492401 Canceled: Familial hypercholesterolemia / SNOMED CT 4476619528 Canceled: Prostate cancer screening / SNOMED CT 407617675 Canceled: Well adult health check / SNOMED CT 369737390 Physical Examination Vital Signs 07/20/2024 10:09 EDT Heart Rate Monitored 78 bpm Respiratory Rate Monitored 18 br/min Systolic Blood Pressure 96 mmHg Diastolic Blood Pressure 73 mmHg SpO2 92 % 07/20/2024 10:04 EDT Heart Rate Monitored 81 bpm Respiratory Rate Monitored 16 br/min Systolic Blood Pressure 108 mmHg Diastolic Blood Pressure 75 mmHg SpO2 93 % 07/20/2024 9:59 EDT Temperature Temporal Artery 36.6 DegC Heart Rate Monitored 81 bpm Respiratory Rate Monitored 20 br/min Systolic Blood Pressure 111 mmHg Diastolic Blood Pressure 78 mmHg Blood Pressure Location Left arm SpO2 94 % 07/20/2024 9:55 EDT Heart Rate Monitored 98 bpm bpm Respiratory Rate 12 br/min br/min SpO2 97 % % 07/20/2024 9:54 EDT Systolic Blood Pressure 148 mmHg mmHg Diastolic Blood Pressure 104 mmHg mmHg 07/20/2024 9:51 EDT Systolic Blood Pressure 130 mmHg mmHg Diastolic Blood Pressure 86 mmHg mmHg 07/20/2024 9:50 EDT Heart Rate Monitored 79 bpm bpm SpO2 97 % % 07/20/2024 9:48 EDT Systolic Blood Pressure 123 mmHg mmHg Diastolic Blood Pressure 81 mmHg mmHg 07/20/2024 9:45 EDT Heart Rate Monitored 74 bpm bpm Systolic Blood Pressure 146 mmHg mmHg Diastolic Blood Pressure 96 mmHg mmHg SpO2 97 % % 07/20/2024 9:42 EDT Systolic Blood Pressure 128 mmHg mmHg Diastolic Blood Pressure 88 mmHg mmHg 07/20/2024 9:40 EDT Heart Rate Monitored 71 bpm bpm Respiratory Rate 12 br/min br/min SpO2 98 % % 07/20/2024 9:39 EDT Systolic Blood Pressure 117 mmHg mmHg Diastolic Blood Pressure 81 mmHg mmHg 07/20/2024 9:36 EDT Systolic Blood Pressure 146 mmHg mmHg Diastolic Blood Pressure 88 mmHg mmHg 07/20/2024 8:39 EDT Temperature Temporal Artery 36.6 DegC Heart Rate Monitored 84 bpm Respiratory Rate Monitored 15 br/min Systolic Blood Pressure 163 mmHg HI Diastolic Blood Pressure 88 mmHg Blood Pressure Location Left arm SpO2 95 % Pain Assessment Assessment Anesthetic outcome No anesthetic complications noted. Adequate pain relief. Review / Management Condition Plan Transfer/Discharge: Patient exhibiting no signs of N/V. Hydration status is adequate.[facility]:Result Comment: Electronically Signed By: Farhad Rosario DO.br\Date and Time Signed: 07/20/24 10:14 [id number] NotePatient Education - Text Colonoscopy Care After Surgery Please read the instructions outlined below and refer to this sheet in the next few weeks. These discharge instructions provide you with general information on caring for yourself after you leave thespital. Your doctor may also give you specific instructions. While your treatment has been planned according to the most current medical practices available, unavoidable complications occasionally occur. If you have any problems or questions after discharge, please call your doctor. ACTIVITY You may resume your regular activity, but move at a slower pace for the next 24 hours. Take frequent rest periods for the next 24 hours. Walking will help get rid of the air and reduce the bloated feeling in your abdomen (belly). No driving for 24 hours (because of the anesthesia (medicine) used during the test). You may shower. Do not sign any important legal documents or operate any machinery for 24 hours (because of the anesthesia used during the test). NUTRITION Drink plenty of fluids. You may resume your normal diet as instructed by your doctor. Begin with a light meal and progress to your normal diet. Heavy or fried foods are harder to digestand may make you feel nauseated (sick to your stomach). Avoid alcoholic beverages for 24 hours or as instructed. MEDICATIONS You may resume your normal medications unless your doctor tells you otherwise. WHAT YOU CAN EXPECT TODAY Some feelings of bloating in the abdomen. Passage of more gas than usual. Spotting of blood in your stool or on the toilet paper. FOLLOW-UP Your doctor will discuss the results of your test with you. SEEK IMMEDIATE MEDICAL ATTENTION IF: There is more than a spotting of blood in your stool. There is abdominal distention (your abdomen is swollen). There is vomiting. You have a temperature over 101.5 F. There is abdominal pain or discomfort that is severe or gets worse throughout the day. Gastroenterology Hemorrhoids Hemorrhoids are swollen veins that may form: ??? In the butt (rectum). These are called internal hemorrhoids. ??? Around the opening of the butt (anus). These are called external hemorrhoids. Most hemorrhoids do not cause very bad problems. They often get better with changes to your lifestyle and what you eat. What are the causes? Having trouble pooping (constipation) or watery poop (diarrhea). ??? Pushing too hard when you poop. ??? . ??? Being very overweight (obese). ??? Sitting for too long. ??? Riding a bike for a long time. ??? Heavy lifting or other things that take a lot of effort. ??? Anal sex. What are the signs or symptoms? Pain. ??? Itching or soreness in the butt. ??? Bleeding from the butt. ??? Leaking poop. ??? Swelling. ??? One or more lumps around the opening of your butt. How is this treated? In most cases, hemorrhoids can be treated at home. You may be told to: ??? Change what you eat. ??? Make changes to your lifestyle. If these treatments do not help, you may need to have a procedure done. Your doctor may need to: ??? Place rubber bands at the bottom of the hemorrhoids to make them fall off. ??? Put medicine into the hemorrhoids to shrink them. ??? Shine a type of light on the hemorrhoids to cause them to fall off. ??? Do surgery to get rid of the hemorrhoids. Follow these instructions at home: Medicines ??? Take wvgt-qjs-dtssfym and prescription medicines only as told by your doctor. ??? Use creams with medicine in them or medicines that you put in your butt as told by your doctor. Eating and drinking ??? Eat foods that have a lot of fiber in them. These include whole grains, beans, nuts, fruits, and vegetables. ??? Ask your doctor about taking products that have fiber added to them (fibersupplements). ??? Take in less fat. You can do this by: ? Eating low-fat dairy products. ? Eating less red meat. ? Staying away from processed foods. ??? Drink enough fluid to keep your pee (urine) pale yellow. Managing pain and swelling ??? Take a warm-water bath (sitz bath) for 20 minutes to ease pain. Do this 3?4 times a day. You may do this in a bathtub. You may also use a portable sitz bath that fits over the toilet. ??? If told, put ice on the painful area. It may help to use ice between your warm baths. ? Put ice in a plastic bag. ? Place a towel between your skin and the bag. ? Leave the ice on for 20 minutes, 2?3 times a day. ??? If your skin turns bright red, take off the ice right away to prevent skin damage. The risk of damage is higher if you cannot feel pain, heat, or cold. General instructions ??? Exercise. Ask your doctor how much and what kind of exercise is best for you. ??? Go to the bathroom when you need to poop. Do not wait. ??? Try not to push too hard when you poop. (more content not included)...[facility]10-[facility]-2024 NoteProgress Note-Physician Patient: NEELIMA JACOBSON Age: 68 years Sex: Male : 1955 Associated Diagnoses: None Author: Farhad Rosario DO Preoperative Information Anesthesia history: Patient history: None. Family history+: None. Anesthesia results Informed consent: Signed by patient. Including risks, benefits, and alternatives related to the: Anesthetic plan, Postoperative pain management plan. Re-evaluation prior to induction: Farhad Rosario DO. Health Status Allergies: Allergic Reactions (Selected) No Known Allergies, Allergies (1) Active Severity Reaction No Known Allergies None Documented Current medications: (Selected) Inpatient Medications Ordered Lactated Ringers IV Kiara 1000 mL 1,000 mL: 1,000 mL, IV, 100 mL/hr, Routine, Start date 07/20/24 8:48:00 EDT, 10 hour(s), Total volume (mL): 1,000, 109 kg, 2.38, m2 Sodium Chloride 0.9% IV Kiara 1000 mL 1,000 mL: 1,000 mL, IV, 20 mL/hr, Routine, Start date 07/20/24 6:37:00 EDT, 50 hour(s), Total volume (mL): 1,000, 109 kg, 2.38, m2, No qualifying data available , Medications (2) Active Scheduled: (0) Continuous: (2) Lactated Ringers 1,000 mL 1,000 mL, IV, 100 mL/hr Sodium Chloride 0.9% 1,000 mL 1,000 mL, IV, 20 mL/hr PRN: (0) Problem list: All Problems BMI 29.0-29.9,adult / SNOMED CT 67329850 / Confirmed Cerumen debris on tympanic membrane of right ear / SNOMED CT 418964 / Confirmed Colon cancer screening / SNOMED CT 930903712 / Confirmed Diverticulosis / SNOMED CT 6859980530 / Confirmed Elevated serum protein level / SNOMED CT 896411145 / Confirmed Epidermoid cyst of skin of back / SNOMED CT 0182422360 / Confirmed Left inguinal hernia / SNOMED CT 428847428 / Confirmed 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 / SNOMED CT 9746206821 / Confirmed Meniscal injury / SNOMED CT 992577206 / Confirmed Non-smoker / SNOMED CT 53331667 / Confirmed Obesity / SNOMED CT 6702976153 / Confirmed PSA elevation / SNOMED CT 5220616418 / Confirmed Right knee pain / SNOMED CT 47195236 / Confirmed Screen for colon cancer / SNOMED CT 795615391 / Confirmed Screening PSA (prostate specific antigen) / SNOMED CT 623347948 / Confirmed Well adult health check / SNOMED CT 111972275 / Confirmed Resolved: Cellulitis, face / SNOMED CT 004274167 Resolved: Class 1 obesity with body mass index (BMI) of 30.0 to 30.9 in adult / SNOMED CT 6503804029 Resolved: None / SNOMED CT 855841325 Resolved: Sebaceous cyst / SNOMED CT 7343802159 Canceled: Adult BMI 30.0-30.9 kg/sq m / SNOMED CT 427566657 Canceled: Familial hypercholesterolemia / SNOMED CT 8071320981 Canceled: Prostate cancer screening / SNOMED CT 169359805 Canceled: Well adult health check / SNOMED CT 370340544, Active Problems (16) BMI 29.0-29.9,adult Cerumen debris on tympanic membrane of right ear Colon cancer screening Diverticulosis Elevated serum protein level Epidermoid cyst of skin of back Left inguinal hernia 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 Cellulitis, face (978368118): Resolved on 04/26/2019 at 63 years. Class 1 obesity with body mass index (BMI) of 30.0 to 30.9 in adult (5240824072): Resolved. Sebaceous cyst (9938907844): Resolved. Family History: Entire family history is negative. Procedure history: Repair of left inguinal hernia (6113247379) on 07/09/2022 at 66 Years. Comments: 07/09/2022 17:03 EDT - [facility] CARPENTER, Ana Maria Galindo Left robotic assisted inguinal hernia repair Colonoscopy (608522055) on 05/03/2012 at 56 Years. Social History Social & Psychosocial Habits Alcohol 07/07/2024 Risk Assessment: Low Risk 07/07/2024 Use: Current Type: Liquor Frequency: 1-2 times per month Substance Abuse 07/07/2024 Risk Assessment: Denies Substance Abuse Tobacco 07/07/2024 Risk Assessment: Denies Tobacco Use 07/07/2024 Tobacco Use: Never (less than 100 in l Smokeless tobacco use: Never 07/07/2024 Tobacco Use: Never (less than 100 in l . Physical Examination Vital Signs 07/20/2024 8:39 EDT Temperature Temporal Artery 36.6 DegC Heart Rate Monitored 84 bpm Respiratory Rate Monitored 15 br/min Systolic Blood Pressure 163 mmHg HI Diastolic Blood Pressure 88 mmHg Blood Pressure Location Left arm SpO2 95 % Vital Signs (last 24 hrs) Last Charted Temp Temporal 36.6 DegC (JUL 20 08:39) Heart Rate Monitored 84 bpm (JUL 20 08:39) Resp Rate 15 br/min (JUL 20 08:39) SBP H 163 mmHg (JUL 20 08:39) DBP 88 mmHg (JUL 20 08:39) Weight 109 kg (JUL 20 08:35) BMI 31.17 (JUL 20 08:35) Measurements from flowsheet : Measurements 1 (more content not included)...[facility]Comment on above: Result Comment: Electronically Signed By: Farhad Rosario DO\.br\Date and Time Signed: 07/20/24 08:49 [id number] Hospital Discharge instructions Patient Education 06/14/2024 14:19:15 Diverticulosis Diverticulosis Diverticulosis is when small pouches called diverticula form in the wall of the colon. The colon iswhere water is absorbed. It is also where poop (stool) is formed. The pouches form when the inside layer of the colon pushes through weak spots in the outer layers of the colon. You may have a few pouches or many of them. In most cases, the pouches do not cause problems. If they become inflamed or infected, you may havea condition called diverticulitis. What are the causes? The cause of this condition is not known. What increases the risk? You are more likely to get this condition if: You are older than 60 years of age. You do not eat enough fiber or you get constipated a lot. You are overweight. You do not get enough exercise. You smoke. You take jlhy-kli-ivivtyy pain medicines. You have a family history of the condition. What are the signs or symptoms? In most people, there are no symptoms. If you do have symptoms, they may include: Bloating. Stomach cramps. Constipation or diarrhea. Pain in the lower left side of your abdomen. How is this diagnosed? This condition is often diagnosed during an exam for other colon problems. It may be diagnosed whenyou have: A colonoscopy. This is when a tube with a camera on the end is used to look at your colon. A barium enema. This is an X-ray exam that uses dye to look at your colon. A CT scan. How is this treated? You may not need treatment. Your health care provider will tell you what you can do at home to helpprevent problems. You may need treatment if you have symptoms or if you have had diverticulitis before. You may be told to: Eat a high-fiber diet. Take medicine to relax your colon. Lose weight. Follow these instructions at home: Medicines Take mosn-ige-niqaxki and prescription medicines only as told by your provider. If told, take a fiber supplement or probiotic. Managing constipation Your condition may cause constipation. To prevent or treat constipation, you may need to: Drink enough fluid to keep your pee (urine) pale yellow. Take vifa-aid-riiynzy or prescription medicines. Eat foods that are high in fiber, such as beans, whole grains, and fresh fruits and vegetables. Limit foods that are high in fat and processed sugars, such as fried or sweet foods. Try not to strain when you poop. Contact a health care provider if: Your symptoms get worse all of a sudden. You have pain in your abdomen that gets worse. You have bloating or stomach cramps. You continue to have frequent constipation. You have a fever or chills. You vomit. Your poop is bloody, black, or tarry. This information is not intended to replace advice given to you by your health care provider. Make sure you discuss any questions you have with your health care provider. Document Revised: 06/11/2023 Document Reviewed: 06/11/2023 [employer] Patient Education 2023 [employer]. Follow Up Care 05/19/2023 13:37:30 With:RICK ROSEN FAAFP, FLORA Panchal, PED Address: [address] [place] [address] [place] [address] When:Within 1 Year(s) [facility] 09-17-2024 NotePatient Education Gastroenterology Diverticulosis Diverticulosis is when small pouches called diverticula form in the wall of the colon. The colon iswhere water is absorbed. It is also where poop (stool) is formed. The pouches form when the inside layer of the colon pushes through weak spots in the outer layers of the colon. You may have a few pouches or many of them. In most cases, the pouches do not cause problems. If they become inflamed or infected, you may havea condition called diverticulitis. What are the causes? The cause of this condition is not known. What increases the risk? You are more likely to get this condition if: ? You are older than 60 years of age. ? You do not eat enough fiber or you get constipated a lot. ? You are overweight. ? You do not get enough exercise. ? You smoke. ? You take cluu-cof-sowwtmy pain medicines. ? You have a family history of the condition. What are the signs or symptoms? In most people, there are no symptoms. If you do have symptoms, they may include: ? Bloating. ? Stomach cramps. ? Constipation or diarrhea. ? Pain in the lower left side of your abdomen. How is this diagnosed? This condition is often diagnosed during an exam for other colon problems. It may be diagnosed whenyou have: ? A colonoscopy. This is when a tube with a camera on the end is used to look at your colon. ? A barium enema. This is an X-ray exam that uses dye to look at your colon. ? A CT scan. How is this treated? You may not need treatment. Your health care provider will tell you what you can do at home to helpprevent problems. You may need treatment if you have symptoms or if you have had diverticulitis before. You may be told to: ? Eat a high-fiber diet. ? Take medicine to relax your colon. ? Lose weight. Follow these instructions at home: Medicines ? Take fasd-kpg-woegzzk and prescription medicines only as told by your provider. ? If told, take a fiber supplement or probiotic. Managing constipation Your condition may cause constipation. To prevent or treat constipation, you may need to: ? Drink enough fluid to keep your pee (urine) pale yellow. ? Take kjqd-afb-wqyryak or prescription medicines. ? Eat foods that are high in fiber, such as beans, whole grains, and fresh fruits and vegetables. ? Limit foods that are high in fat and processed sugars, such as fried or sweet foods. Try not to strain when you poop. Contact a health care provider if: ? Your symptoms get worse all of a sudden. ? You have pain in your abdomen that gets worse. ? You have bloating or stomach cramps. ? You continue to have frequent constipation. ? You have a fever or chills. ? You vomit. ? Your poop is bloody, black, or tarry. This information is not intended to replace advice given to you by your health care provider. Make sure you discuss any questions you have with your health care provider. Document Revised: 06/11/2023 Document Reviewed: 06/11/2023 [employer] Patient Education ? 2023 [employer].[facility] 05-24-2023 Evaluation note* Encounter Date Diagnosis Assessment Notes Treatment Notes Treatment Clinical Notes Apr, Right ear impacted cerumen (ICD-10 - H61.21) Right ear flushed out. Patient tolerated well. Large amount of cerumen impaction removed. Has small piece of wet cerumen remaining but not impacted. Canal is mildly excoriated and irritated. Patient is complaining of some pain so irrigation is discontinued. Given large impaction was removed symptoms should be improving over the next 2 to 3 days. May use Tylenol or ibuprofen for discomfort. Follow-up with PCP if not improving over the next 5 days. Apr, Acute otitis externa of right ear, unspecified type (ICD-10 - H60.501) Mild excoriation, erythema and irritation where cerumen was attached to right ear canal. Will treat with ofloxacin drops. Finish entire course. Keep ear dry and avoid water activities. Follow-up PCP if not improving over the next 5 to 7 days. [employer] Other 08-15-2023 Hospital Discharge instructions Patient Education 05/12/2023 09:21:56 Health Maintenance, Male Health Maintenance, Male Adopting a healthy lifestyle and getting preventive care are important in promoting health and wellness. Ask your health care provider about: The right schedule for you to have regular tests and exams. Things you can do on your own to prevent diseases and keep yourself healthy. What should I know about diet, weight, and exercise? Eat a healthy diet Eat a diet that includes plenty of vegetables, fruits, low-fat dairy products, and lean protein. Do not eat a lot of foods that are high in solid fats, added sugars, or sodium. Maintain a healthy weight Body mass index (BMI) is a measurement that can be used to identify possible weight problems. It estimates body fat based on height and weight. Your health care provider can help determine your BMI and help you achieve or maintain a healthy weight. Get regular exercise Get regular exercise. This is one of the most important things you can do for your health. Most adults should: Exercise for at least 150 minutes each week. The exercise should increase your heart rate and make you sweat (moderate-intensity exercise). Do strengthening exercises at least twice a week. This is in addition to the moderate-intensity exercise. Spend less time sitting. Even light physical activity can be beneficial. Watch cholesterol and blood lipids Have your blood tested for lipids and cholesterol at 20 years of age, then have this test every 5 years. You may need to have your cholesterol levels checked more often if: Your lipid or cholesterol levels are high. You are older than 40 years of age. You are at high risk for heart disease. What should I know about cancer screening? Many types of cancers can be detected early and may often be prevented. Depending on your health history and family history, you may need to have cancer screening at various ages. This may include screening for: Colorectal cancer. Prostate cancer. Skin cancer. Lung cancer. What should I know about heart disease, diabetes, and high blood pressure? Blood pressure and heart disease High blood pressure causes heart disease and increases the risk of stroke. This is more likely to develop in people who have high blood pressure readings or are overweight. Talk with your health care provider about your target blood pressure readings. Have your blood pressure checked: ?Every 3 5 years if you are 18 39 years of age. ?Every year if you are 40 years old or older. If you are between the ages of 65 and 75 and are a current or former smoker, ask your health care provider if you should have a one-time screening for abdominal aortic aneurysm (AAA). Diabetes Have regular diabetes screenings. This checks your fasting blood sugar level. Have the screening done: Once every three years after age 45 if you are at a normal weight and have a low risk for diabetes. More often and at a younger age if you are overweight or have a high risk for diabetes. What should I know about preventing infection? Hepatitis B If you have a higher risk for hepatitis B, you should be screened for this virus. Talk with your health care provider to find out if you are at risk for hepatitis B infection. Hepatitis C Blood testing is recommended for: Everyone born from 1945 through 1965. Anyone with known risk factors for hepatitis C. Sexually transmitted infections (STIs) You should be screened each year for STIs, including gonorrhea and chlamydia, if: ?You are sexually active and are younger than 24 years of age. ?You are older than 24 years of age and your health care provider tells you that you are at risk for this type of infection. ?Your sexual activity has changed since you were last screened, and you are at increased risk for chlamydia or gonorrhea. Ask your health care provider if you are at risk. Ask your health care provider about whether you are at high risk for HIV. Your health care providermay recommend a prescription medicine to help prevent HIV infection. If you choose to take medicineto prevent HIV, you should first get tested for HIV. You should then be tested every 3 months for as long as you are taking the medicine. Follow these instructions at home: Alcohol use Do not drink alcohol if your health care provider tells you not to drink. If you drink alcohol: ?Limit how much you have to 0-2 drinks a day. ?Know how much alcohol is in your drink. In the [place] one drink equals one 12 oz bottle of beer (355 mL), one 5 oz glass of wine (148 mL), or one 1 oz glass of hard liquor (44 mL). Lifestyle Do not use any products that contain nicotine or tobacco. These products include cigarettes, chewing tobacco, and vaping devices, such as e-cigarettes. If you need help quitting, ask your health careprovider. Do not use street drugs. Do not share needles. Ask your health care provider for help if you need support or information about quitting drugs. General instructions Schedule regular health, dental, and eye exams. Stay current with your vaccines. Tell your health care provider if: ?You often feel depressed. ?You have ever been abused or do not feel safe at home. Summary Adopting a healthy lifestyle and getting preventive care are important in promoting health and wellness. Follow your health care provider's instructions about healthy diet, exercising, and getting tested or screened for diseases. Follow your health care provider's instructions on monitoring your cholesterol and blood pressure. This information is not intended to replace advice given to you by your health care provider. Make sure you discuss any questions you have with your health care provider. Document Revised: 02/03/2022 Document Reviewed: 02/03/2022 [employer] Patient Education 2022 [employer]. 05/12/2023 09:21:53 Health Maintenance After Age 65 Health Maintenance After Age 65 After age 65, you are at a higher risk for certain long-term diseases and infections as well as injuries from falls. Falls are a major cause of broken bones and head injuries in people who are older than age 65. Getting regular preventive care can help to keep you healthy and well. Preventive care includes getting regular testing and making lifestyle changes as recommended by your health care provider. Talk with your health care provider about: Which screenings and tests you should have. A screening is a test that checks for a disease when you have no symptoms. A diet and exercise plan that is right for you. What should I know about screenings and tests to prevent falls? Screening and testing are the best ways to find a health problem early. Early diagnosis and treatment give you the best chance of managing medical conditions that are common after age 65. Certain conditions and lifestyle choices may make you more likely to have a fall. Your health care provider mayrecommend: Regular vision checks. Poor vision and conditions such as cataracts can make you more likely to have a fall. If you wear glasses, make sure to get your prescription updated if your vision changes. Medicine review. Work with your health care provider to regularly review all of the medicines you are taking, including abci-qmg-qrfkzrx medicines. Ask your health care provider about any side effects that may make you more likely to have a fall. Tell your health care provider if any medicines thatyou take make you feel dizzy or sleepy. Strength and balance checks. Your health care provider may recommend certain tests to check your strength and balance while standing, walking, or changing positions. Foot health exam. Foot pain and numbness, as well as not wearing proper footwear, can make you morelikely to have a fall. Screenings, including: ?Osteoporosis screening. Osteoporosis is a condition that causes the bones to get weaker and break more easily. ?Blood pressure screening. Blood pressure changes and medicines to control blood pressure can make you feel dizzy. ?Depression screening. You may be more likely to have a fall if you have a fear of falling, feel depressed, or feel unable to do activities that you used to do. ?Alcohol use screening. Using too much alcohol can affect your balance and may make you more likelyto have a fall. Follow these instructions at home: Lifestyle Do not drink alcohol if: ?Your health care provider tells you not to drink. If you drink alcohol: ?Limit how much you have to: ?0 1 drink a day for women. ?0 2 drinks a day for men. ?Know how much alcohol is in your drink. In the [place] one drink equals one 12 oz bottle of beer (355 mL), one 5 oz glass of wine (148 mL), or one 1 oz glass of hard liquor (44 mL). Do not use any products that contain nicotine or tobacco. These products include cigarettes, chewing tobacco, and vaping devices, such as e-cigarettes. If you need help quitting, ask your health careprovider. Activity Follow a regular exercise program to stay fit. This will help you maintain your balance. Ask your health care provider what types of exercise are appropriate for you. If you need a cane or walker, use it as recommended by your health care provider. Wear supportive shoes that have nonskid soles. Safety Remove any tripping hazards, such as rugs, cords, and clutter. Install safety equipment such as grab bars in bathrooms and safety rails on stairs. Keep rooms and walkways well-lit. General instructions Talk with your health care provider about your risks for falling. Tell your health care provider if: ?You fall. Be sure to tell your health care provider about all falls, even ones that seem minor. ?You feel dizzy, tiredness (fatigue), or off-balance. Take dtar-iym-yhomngb and prescription medicines only as told by your health care provider. These include supplements. Eat a healthy diet and maintain a healthy weight. A healthy diet includes low- fat dairy products, low-fat (lean) meats, and fiber from whole grains, beans, and lots of fruits and vegetables. Stay current with your vaccines. Schedule regular health, dental, and eye exams. Summary Having a healthy lifestyle and getting preventive care can help to protect your health and wellnessafter age 65. Screening and testing are the best way to find a health problem early and help you avoid having a fall. Early diagnosis and treatment give you the best chance for managing medical conditions that aremore common for people who are older than age 65. Falls are a major cause of broken bones and head injuries in people who are older than age 65. Takeprecautions to prevent a fall at home. Work with your health care provider to learn what changes you can make to improve your health and wellness and to prevent falls. This information is not intended to replace advice given to you by your health care provider. Make sure you discuss any questions you have with your health care provider. Document Revised: 02/03/2022 Document Reviewed: 02/03/2022 [employer] Patient Education 2022 [employer]. 05/12/2023 09:21:52 Exercising to Lose Weight Exercising to Lose Weight Getting regular exercise is important for everyone. It is especially important if you are overweight. Being overweight increases your risk of heart disease, stroke, diabetes, high blood pressure, andseveral types of cancer. Exercising, and reducing the calories you consume, can help you lose weight and improve fitness and health. Exercise can be moderate or vigorous intensity. To lose weight, most people need to do a certain amount of moderate or vigorous-intensity exercise each week. How can exercise affect me? You lose weight when you exercise enough to burn more calories than you eat. Exercise also reduces body fat and builds muscle. The more muscle you have, the more calories you burn. Exercise also: Improves mood. Reduces stress and tension. Improves your overall fitness, flexibility, and endurance. Increases bone strength. Moderate-intensity exercise Moderate-intensity exercise is any activity that gets you moving enough to burn at least three times more energy (calories) than if you were sitting. Examples of moderate exercise include: Walking a mile in 15 minutes. Doing light yard work. Biking at an easy pace. Most people should get at least 150 minutes of moderate-intensity exercise a week to maintain theirbody weight. Vigorous-intensity exercise Vigorous-intensity exercise is any activity that gets you moving enough to burn at least six times more calories than if you were sitting. When you exercise at this intensity, you should be working hard enough that you are not able to carry on a conversation. Examples of vigorous exercise include: Running. Playing a team sport, such as football, basketball, and soccer. Jumping rope. Most people should get at least 75 minutes a week of vigorous exercise to maintain their body weight. What actions can I take to lose weight? The amount of exercise you need to lose weight depends on: Your age. The type of exercise. Any health conditions you have. Your overall physical ability. Talk to your health care provider about how much exercise you need and what types of activities aresafe for you. Nutrition Make changes to your diet as told by your health care provider or diet and magneto specialist (dietitian). This may include: ?Eating fewer calories. ?Eating more protein. ?Eating less unhealthy fats. ?Eating a diet that includes fresh fruits and vegetables, whole grains, low-fat dairy products, andlean protein. ?Avoiding foods with added fat, salt, and sugar. Drink plenty of water while you exercise to prevent dehydration or heat stroke. Activity Choose an activity that you enjoy and set realistic goals. Your health care provider can help you make an exercise plan that works for you. Exercise at a moderate or vigorous intensity most days of the week. ?The intensity of exercise may vary from person to person. You can tell how intense a workout is for you by paying attention to your breathing and heartbeat. Most people will notice their breathing and heartbeat get faster with more intense exercise. Do resistance training twice each week, such as: ?Push-ups. ?Sit-ups. ?Lifting weights. ?Using resistance bands. Getting short amounts of exercise can be just as helpful as long, structured periods of exercise. If you have trouble finding time to exercise, try doing these things as part of your daily routine: ?Get up, stretch, and walk around every 30 minutes throughout the day. ?Go for a walk during your lunch break. ?Park your car farther away from your destination. ?If you take public transportation, get off one stop early and walk the rest of the way. ?Make phone calls while standing up and walking around. ?Take the stairs instead of elevators or escalators. Wear comfortable clothes and shoes with good support. Do not exercise so much that you hurt yourself, feel dizzy, or get very short of breath. Where to find more information [place] Department of Health and Human Services: www.hhs.gov Centers for Disease Control and Prevention: www.cdc.gov Contact a health care provider: Before starting a new exercise program. If you have questions or concerns about your weight. If you have a medical problem that keeps you from exercising. Get help right away if: You have any of the following while exercising: ?Injury. ?Dizziness. ?Difficulty breathing or shortness of breath that does not go away when you stop exercising. ?Chest pain. ?Rapid heartbeat. These symptoms may represent a serious problem that is an emergency. Do not wait to see if the symptoms will go away. Get medical help right away. Call your local emergency services (911 in the [place] Do not drive yourself to the hospital. Summary Getting regular exercise is especially important if you are overweight. Being overweight increases your risk of heart disease, stroke, diabetes, high blood pressure, and several types of cancer. Losing weight happens when you burn more calories than you eat. Reducing the amount of calories you eat, and getting regular moderate or vigorous exercise each week, helps you lose weight. This information is not intended to replace advice given to you by your health care provider. Make sure you discuss any questions you have with your health care provider. Document Revised: 11/10/2021 Document Reviewed: 11/10/2021 [employer] Patient Education 2022 [employer]. 05/12/2023 09:21:51 BMI for Adults BMI for Adults What is BMI? Body mass index (BMI) is a number that is calculated from a person's weight and height. BMI can help estimate how much of a person's weight is composed of fat. BMI does not measure body fat directly.Rather, it is an alternative to procedures that directly measure body fat, which can be difficult and expensive. BMI can help identify people who may be at higher risk for certain medical problems. What are BMI measurements used for? BMI is used as a screening tool to identify possible weight problems. It helps determine whether a person is obese, overweight, a healthy weight, or underweight. BMI is useful for: Identifying a weight problem that may be related to a medical condition or may increase the risk for medical problems. Promoting changes, such as changes in diet and exercise, to help reach a healthy weight. BMI screening can be repeated to see if these changes are working. How is BMI calculated? BMI involves measuring your weight in relation to your height. Both height and weight are measured,and the BMI is calculated from those numbers. This can be done either in [place] or metric measurements. Note that charts and online BMI calculators are available to help you find your BMI quickly and easily without having to do these calculations yourself. To calculate your BMI in [place] measurements: 1.Measure your weight in pounds (lb). 2.Multiply the number of pounds by 703. For example, for a person who weighs 180 lb, multiply that number by 703, which equals 126,540. 3.Measure your height in inches. Then multiply that number by itself to get a measurement called inches squared. For example, for a person who is 70 inches tall, the inches squared measurement is 70 inches x 70inches, which equals 4,900 inches squared. 4.Divide the total from step 2 (number of lb x 703) by the total from step 3 (inches squared): 126,540 4,900 = 25.8. This is your BMI. To calculate your BMI in metric measurements: 1.Measure your weight in kilograms (kg). 2.Measure your height in meters (m). Then multiply that number by itself to get a measurement called meters squared. For example, for a person who is 1.75 m tall, the meters squared measurement is 1.75 m x 1.75 m, which is equal to 3.1 meters squared. 3.Divide the number of kilograms (your weight) by the meters squared number. In this example: 70 3.1 = 22.6. This is your BMI. What do the results mean? BMI charts are used to identify whether you are underweight, normal weight, overweight, or obese. The following guidelines will be used: Underweight: BMI less than 18.5. Normal weight: BMI between 18.5 and 24.9. Overweight: BMI between 25 and 29.9. Obese: BMI of 30 or above. Keep these notes in mind: Weight includes both fat and muscle, so someone with a muscular build, such as an athlete, may havea BMI that is higher than 24.9. In cases like these, BMI is not an accurate measure of body fat. To determine if excess body fat is the cause of a BMI of 25 or higher, further assessments may needto be done by a health care provider. BMI is usually interpreted in the same way for men and women. Where to find more information For more information about BMI, including tools to quickly calculate your BMI, go to these websites: Centers for Disease Control and Prevention: www.cdc.gov [place] [employer]: www.heart.org National Heart, Lung, and Blood [place]: www.nhlbi.nih.gov Summary Body mass index (BMI) is a number that is calculated from a person's weight and height. BMI may help estimate how much of a person's weight is composed of fat. BMI can help identify thosewho may be at higher risk for certain medical problems. BMI can be measured using [place] measurements or metric measurements. BMI charts are used to identify whether you are underweight, normal weight, overweight, or obese. This information is not intended to replace advice given to you by your health care provider. Make sure you discuss any questions you have with your health care provider. Document Revised: 06/06/2020 Document Reviewed: 04/13/2020 [employer] Patient Education 2022 [employer]. Follow Up Care 04/07/2023 13:16:45 With:Malachi Zamanlynn Sadia Address: [address], [place] [address]- When:Within 1 Year(s) Comments:wellness [facility] 11-10-2022 Evaluation + Plan note Future Scheduled Tests Laboratory* PSA Screen, Total 08/07/22 * Basic Metabolic Panel 08/07/22 * CBC w/ Auto Diff 08/07/22 * Hepatic Function Panel 08/07/22 * Lipid Panel 08/07/22 [facility] 11-10-2022 Hospital Discharge instructions Patient Education 08/07/2022 07:55:14 Diverticulosis Diverticulosis Diverticulosis is a condition that develops when small pouches (diverticula) form in the wall of the large intestine (colon). The colon is where water is absorbed and stool is formed. The pouches form when the inside layer of the colon pushes through weak spots in the outer layers of the colon. Youmay have a few pouches or many of them. What are the causes? The cause of this condition is not known. What increases the risk? The following factors may make you more likely to develop this condition: Being older than age 60. Your risk for this condition increases with age. Diverticulosis is rare among people younger than age 30. By age 80, many people have it. Eating a low-fiber diet. Having frequent constipation. Being overweight. Not getting enough exercise. Smoking. Taking jgwd-pqm-dykszpw pain medicines, like aspirin and ibuprofen. Having a family history of diverticulosis. What are the signs or symptoms? In most people, there are no symptoms of this condition. If you do have symptoms, they may include: Bloating. Cramps in the abdomen. Constipation or diarrhea. Pain in the lower left side of the abdomen. How is this diagnosed? This condition is most often diagnosed during an exam for other colon problems. Because diverticulosis usually has no symptoms, it often cannot be diagnosed independently. This condition may be diagnosed by: Using a flexible scope to examine the colon (colonoscopy). Taking an X-ray of the colon after dye has been put into the colon (barium enema). Doing a CT scan. How is this treated? You may not need treatment for this condition if you have never developed an infection related to diverticulosis. If you have had an infection before, treatment may include: Eating a high-fiber diet. This may include eating more fruits, vegetables, and grains. Taking a fiber supplement. Taking a live bacteria supplement (probiotic). Taking medicine to relax your colon. Taking antibiotic medicines. Follow these instructions at home: Drink 6 8 glasses of water or more each day to prevent constipation. Try not to strain when you have a bowel movement. If you have had an infection before: ?Eat more fiber as directed by your health care provider or your diet and magneto specialist (dietitian). ?Take a fiber supplement or probiotic, if your health care provider approves. Take zquc-eyz-qtwxven and prescription medicines only as told by your health care provider. If you were prescribed an antibiotic, take it as told by your health care provider. Do not stop taking the antibiotic even if you start to feel better. Keep all follow-up visits as told by your health care provider. This is important. Contact a health care provider if: You have pain in your abdomen. You have bloating. You have cramps. You have not had a bowel movement in 3 days. Get help right away if: Your pain gets worse. Your bloating becomes very bad. You have a fever or chills, and your symptoms suddenly get worse. You vomit. You have bowel movements that are bloody or black. You have bleeding from your rectum. Summary Diverticulosis is a condition that develops when small pouches (diverticula) form in the wall of the large intestine (colon). You may have a few pouches or many of them. This condition is most often diagnosed during an exam for other colon problems. If you have had an infection related to diverticulosis, treatment may include increasing the fiber in your diet, taking supplements, or taking medicines. This information is not intended to replace advice given to you by your health care provider. Make sure you discuss any questions you have with your health care provider. Document Released: 06/11/2005 Document Revised: 08/27/2018 Document Reviewed: 08/03/2017 [employer] Patient Education 2020 [employer]. Follow Up Care 05/16/2021 17:02:42 With:RICK ROSEN FAAFP, Alejo Brown, FLORA, PED Address: [address] [place] [address]- When:Within 6 Month(s) [facility] 10-12-2022 Hospital Discharge instructions Patient Education 07/09/2022 13:00:50 Post Op Patient Instructions - FT (CUSTOM) 07/09/2022 12:58:18 Laparoscopic Inguinal Hernia Repair, Adult, Care After Laparoscopic Inguinal Hernia Repair, Adult, Care After This sheet gives you information about how to care for yourself after your procedure. Your health care provider may also give you more specific instructions. If you have problems or questions, contact your health care provider. What can I expect after the procedure? After the procedure, it is common to have: Pain. Swelling and bruising around the incision area. Scrotal swelling, in men. Some fluid or blood draining from your incisions. Follow these instructions at home: Incision care Follow instructions from your health care provider about how to take care of your incisions. Make sure you: ?Wash your hands with soap and water before you change your bandage (dressing). If soap and water are not available, use hand film painter. ?Change your dressing as told by your health care provider. ?Leave stitches (sutures), skin glue, or adhesive strips in place. These skin closures may need to stay in place for 2 weeks or longer. If adhesive strip edges start to loosen and curl up, you may trim the loose edges. Do not remove adhesive strips completely unless your health care provider tells you to do that. Check your incision area every day for signs of infection. Check for: ?More redness, swelling, or pain. ?More fluid or blood. ?Warmth. ?Pus or a bad smell. Wear loose, soft clothing while your incisions heal. Driving Do not drive or use heavy machinery while taking prescription pain medicine. Do not drive for 24 hours if you were given a medicine to help you relax (sedative) during your procedure. Activity Do not lift anything that is heavier than 10 lb (4.5 kg), or the limit that you are told, until your health care provider says that it is safe. Ask your health care provider what activities are safe for you. A lot of activity during the first week after surgery can increase pain and swelling. For 1 week after your procedure: ?Avoid activities that take a lot of effort, such as exercise or sports. ?You may walk and climb stairs as needed for daily activity, but avoid long walks or climbing stairs for exercise. Managing pain and swelling Put ice on painful or swollen areas: ?Put ice in a plastic bag. ?Place a towel between your skin and the bag. ?Leave the ice on for 20 minutes, 2 3 times a day. General instructions Do not take baths, swim, or use a hot tub until your health care provider approves. Ask your healthcare provider if you may take showers. You may only be allowed to take sponge baths. Take wujs-ump-uuckbwb and prescription medicines only as told by your health care provider. To prevent or treat constipation while you are taking prescription pain medicine, your health care provider may recommend that you: ?Drink enough fluid to keep your urine pale yellow. ?Take aqxn-ybj-vmfndsq or prescription medicines. ?Eat foods that are high in fiber, such as fresh fruits and vegetables, whole grains, and beans. ?Limit foods that are high in fat and processed sugars, such as fried and sweet foods. Do not use any products that contain nicotine or tobacco, such as cigarettes and e-cigarettes. If you need help quitting, ask your health care provider. Drink enough fluid to keep your urine pale yellow. Keep all follow-up visits as told by your health care provider. This is important. Contact a health care provider if: You have more redness, swelling, or pain around your incisions or your groin area. You have more swelling in your scrotum. You have more fluid or blood coming from your incisions. Your incisions feel warm to the touch. You have severe pain and medicines do not help. You have abdominal pain or swelling. You cannot eat or drink without vomiting. You cannot urinate or pass a bowel movement. You faint. You feel dizzy. You have nausea and vomiting. You have a fever. Get help right away if: You have pus or a bad smell coming from your incisions. You have redness, warmth, or pain in your leg. You have chest pain. You have problems breathing. Summary Pain, swelling, and bruising are common after the procedure. Check your incision area every day for signs of infection, such as more redness, swelling, or pain. Put ice on painful or swollen areas for 20 minutes, 2 3 times a day. This information is not intended to replace advice given to you by your health care provider. Make sure you discuss any questions you have with your health care provider. Document Released: 12/24/2017 Document Revised: 02/22/2020 Document Reviewed: 12/24/2017 [employer] Patient Education 2020 [employer]. Follow Up Care 06/17/2022 09:42:30 With:Talon Castilloclayton Address: [facility] [address] [address]- [phone] Business (1) When: Unknown Comments:Appointment has already been scheduled [facility]10[facility]04[facility]2022 Hospital Discharge instructions Patient Education 07/01/2022 14:39:52 Diverticulosis Diverticulosis Diverticulosis is a condition that develops when small pouches (diverticula) form in the wall of the large intestine (colon). The colon is where water is absorbed and stool is formed. The pouches form when the inside layer of the colon pushes through weak spots in the outer layers of the colon. Youmay have a few pouches or many of them. What are the causes? The cause of this condition is not known. What increases the risk? The following factors may make you more likely to develop this condition: Being older than age 60. Your risk for this condition increases with age. Diverticulosis is rare among people younger than age 30. By age 80, many people have it. Eating a low-fiber diet. Having frequent constipation. Being overweight. Not getting enough exercise. Smoking. Taking hjub-gof-nvnlcbc pain medicines, like aspirin and ibuprofen. Having a family history of diverticulosis. What are the signs or symptoms? In most people, there are no symptoms of this condition. If you do have symptoms, they may include: Bloating. Cramps in the abdomen. Constipation or diarrhea. Pain in the lower left side of the abdomen. How is this diagnosed? This condition is most often diagnosed during an exam for other colon problems. Because diverticulosis usually has no symptoms, it often cannot be diagnosed independently. This condition may be diagnosed by: Using a flexible scope to examine the colon (colonoscopy). Taking an X-ray of the colon after dye has been put into the colon (barium enema). Doing a CT scan. How is this treated? You may not need treatment for this condition if you have never developed an infection related to diverticulosis. If you have had an infection before, treatment may include: Eating a high-fiber diet. This may include eating more fruits, vegetables, and grains. Taking a fiber supplement. Taking a live bacteria supplement (probiotic). Taking medicine to relax your colon. Taking antibiotic medicines. Follow these instructions at home: Drink 6 8 glasses of water or more each day to prevent constipation. Try not to strain when you have a bowel movement. If you have had an infection before: ?Eat more fiber as directed by your health care provider or your diet and magneto specialist (dietitian). ?Take a fiber supplement or probiotic, if your health care provider approves. Take ejjo-vpx-rcvhgkb and prescription medicines only as told by your health care provider. If you were prescribed an antibiotic, take it as told by your health care provider. Do not stop taking the antibiotic even if you start to feel better. Keep all follow-up visits as told by your health care provider. This is important. Contact a health care provider if: You have pain in your abdomen. You have bloating. You have cramps. You have not had a bowel movement in 3 days. Get help right away if: Your pain gets worse. Your bloating becomes very bad. You have a fever or chills, and your symptoms suddenly get worse. You vomit. You have bowel movements that are bloody or black. You have bleeding from your rectum. Summary Diverticulosis is a condition that develops when small pouches (diverticula) form in the wall of the large intestine (colon). You may have a few pouches or many of them. This condition is most often diagnosed during an exam for other colon problems. If you have had an infection related to diverticulosis, treatment may include increasing the fiber in your diet, taking supplements, or taking medicines. This information is not intended to replace advice given to you by your health care provider. Make sure you discuss any questions you have with your health care provider. Document Released: 06/11/2005 Document Revised: 08/27/2018 Document Reviewed: 08/03/2017 [employer] Patient Education 2020 [employer]. Follow Up Care 05/23/2022 12:30:04 With:Christiana Torres CNP Address: When:Within 10 Month(s) [facility] 08-09-2022 Hospital Discharge instructions Patient Education 05/06/2022 15:55:25 Colonoscopy, Adult Colonoscopy, Adult A colonoscopy is an exam to look at the entire large intestine. During the exam, a lubricated, flexible tube that has a camera on the end of it is inserted into the anus and then passed into the rectum, colon, and other parts of the large intestine. You may have a colonoscopy as a part of normal colorectal screening or if you have certain symptoms, such as: Lack of red blood cells (anemia). Diarrhea that does not go away. Abdominal pain. Blood in your stool (feces). A colonoscopy can help screen for and diagnose medical problems, including: Tumors. Polyps. Inflammation. Areas of bleeding. Tell a health care provider about: Any allergies you have. All medicines you are taking, including vitamins, herbs, eye drops, creams, and rhpb-wdb-jamibjf medicines. Any problems you or family members have had with anesthetic medicines. Any blood disorders you have. Any surgeries you have had. Any medical conditions you have. Any problems you have had passing stool. What are the risks? Generally, this is a safe procedure. However, problems may occur, including: Bleeding. A tear in the intestine. A reaction to medicines given during the exam. Infection (rare). What happens before the procedure? Eating and drinking restrictions Follow instructions from your health care provider about eating and drinking, which may include: A few days before the procedure follow a low-fiber diet. Avoid nuts, seeds, dried fruit, raw fruits, and vegetables. 1 3 days before the procedure follow a clear liquid diet. Drink only clear liquids, such as clear broth or bouillon, black coffee or tea, clear juice, clear soft drinks or sports drinks, gelatin dessert, and popsicles. Avoid any liquids that contain red or purple dye. On the day of the procedure do not eat or drink anything starting 2 hours before the procedure, or within the time period that your health care provider recommends. Up to 2 hours before the procedure, you may continue to drink clear liquids, such as water or clear fruit juice. Bowel prep If you were prescribed an oral bowel prep to clean out your colon: Take it as told by your health care provider. Starting the day before your procedure, you will needto drink a large amount of medicated liquid. The liquid will cause you to have multiple loose stools until your stool is almost clear or light green. If your skin or anus gets irritated from diarrhea, you may use these to relieve the irritation: ?Medicated wipes, such as adult wet wipes with aloe and vitamin E. ?A skin-soothing product like petroleum jelly. If you vomit while drinking the bowel prep, take a break for up to 60 minutes and then begin the bowel prep again. If vomiting continues and you cannot take the bowel prep without vomiting, call yourhealth care provider. To clean out your colon, you may also be given: ?Laxative medicines. ?Instructions about how to use an enema. General instructions Ask your health care provider about: ?Changing or stopping your regular medicines or supplements. This is especially important if you are taking iron supplements, diabetes medicines, or blood thinners. ?Taking medicines such as aspirin and ibuprofen. These medicines can thin your blood. Do not take these medicines before the procedure if your health care provider tells you not to. Plan to have someone take you home from the hospital or clinic. What happens during the procedure? An IV may be inserted into one of your veins. You will be given medicine to help you relax (sedative). To reduce your risk of infection: ?Your health care team will wash or sanitize their hands. ?Your anal area will be washed with soap. You will be asked to lie on your side with your knees bent. Your health care provider will lubricate a long, thin, flexible tube. The tube will have a camera and a light on the end. The tube will be inserted into your anus. The tube will be gently eased through your rectum and colon. Air will be delivered into your colon to keep it open. You may feel some pressure or cramping. The camera will be used to take images during the procedure. A small tissue sample may be removed to be examined under a microscope (biopsy). If small polyps are found, your health care provider may remove them and have them checked for cancer cells. When the exam is done, the tube will be removed. The procedure may vary among health care providers and hospitals. What happens after the procedure? Your blood pressure, heart rate, breathing rate, and blood oxygen level will be monitored until themedicines you were given have worn off. Do not drive for 24 hours after the exam. You may have a small amount of blood in your stool. You may pass gas and have mild abdominal cramping or bloating due to the air that was used to inflate your colon during the exam. It is up to you to get the results of your procedure. Ask your health care provider, or the department performing the procedure, when your results will be ready. Summary A colonoscopy is an exam to look at the entire large intestine. During a colonoscopy, a lubricated, flexible tube with a camera on the end of it is inserted into the anus and then passed into the colon and other parts of the large intestine. Follow instructions from your health care provider about eating and drinking before the procedure. If you were prescribed an oral bowel prep to clean out your colon, take it as told by your health care provider. After your procedure, your blood pressure, heart rate, breathing rate, and blood oxygen level will be monitored until the medicines you were given have worn off. This information is not intended to replace advice given to you by your health care provider. Make sure you discuss any questions you have with your health care provider. Document Released: 09/11/2001 Document Revised: 07/07/2018 Document Reviewed: 11/25/2016 [employer] Patient Education 2020 [employer] Follow Up Care 03/25/2022 14:28:01 With:Christiana Torres CNP Address: When:1 to 2 weeks [facility] 08-04-2022 Hospital Discharge instructions Patient Education 05/01/2022 12:00:24 BMI for Adults BMI for Adults Body mass index (BMI) is a number that is calculated from a person's weight and height. BMI may help to estimate how much of a person's weight is composed of fat. BMI can help identify those who may be at higher risk for certain medical problems. How is BMI used with adults? BMI is used as a screening tool to identify possible weight problems. It is used to check whether aperson is obese, overweight, healthy weight, or underweight. How is BMI calculated? BMI measures your weight and compares it to your height. This can be done either in [place] ([place] or metric measurements. Note that charts are available to help you find your BMI quickly and easily without having to do these calculations yourself. To calculate your BMI in [place] measurements, your health care provider will: 1.Measure your weight in pounds (lb). 2.Multiply the number of pounds by 703. For example, for a person who weighs 180 lb, multiply that number by 703, which equals [phone]. 3.Measure your height in inches (in). Then multiply that number by itself to get a measurement called inches squared. For example, for a person who is 70 in tall, the inches squared measurement is 70 in x 70 in, which equals 4900 inches squared. 4.Divide the total from Step 2 (number of lb x 703) by the total from Step 3 (inches squared): 126,540 4900 = 25.8. This is your BMI. To calculate your BMI in metric measurements, your health care provider will: 1.Measure your weight in kilograms (kg). 2.Measure your height in meters (m). Then multiply that number by itself to get a measurement called meters squared. For example, for a person who is 1.75 m tall, the meters squared measurement is 1.75 m x 1.75 m, which is equal to 3.1 meters squared. 3.Divide the number of kilograms (your weight) by the meters squared number. In this example: 70 3.1 = 22.6. This is your BMI. How is BMI interpreted? To interpret your results, your health care provider will use BMI charts to identify whether you are underweight, normal weight, overweight, or obese. The following guidelines will be used: Underweight: BMI less than 18.5. Normal weight: BMI between 18.5 and 24.9. Overweight: BMI between 25 and 29.9. Obese: BMI of 30 and above. Please note: Weight includes both fat and muscle, so someone with a muscular build, such as an athlete, may havea BMI that is higher than 24.9. In cases like these, BMI is not an accurate measure of body fat. To determine if excess body fat is the cause of a BMI of 25 or higher, further assessments may needto be done by a health care provider. BMI is usually interpreted in the same way for men and women. Why is BMI a useful tool? BMI is useful in two ways: Identifying a weight problem that may be related to a medical condition, or that may increase the risk for medical problems. Promoting lifestyle and diet changes in order to reach a healthy weight. Summary Body mass index (BMI) is a number that is calculated from a person's weight and height. BMI may help to estimate how much of a person's weight is composed of fat. BMI can help identify those who may be at higher risk for certain medical problems. BMI can be measured using [place] measurements or metric measurements. To interpret your results, your health care provider will use BMI charts to identify whether you are underweight, normal weight, overweight, or obese. This information is not intended to replace advice given to you by your health care provider. Make sure you discuss any questions you have with your health care provider. Document Released: 05/26/2005 Document Revised: 08/27/2018 Document Reviewed: 07/28/2018 [employer] Patient Education 2020 [employer]. 05/01/2022 12:00:21 Rash, Adult Rash, Adult A rash is a change in the color of your skin. A rash can also change the way your skin feels. Thereare many different conditions and factors that can cause a rash. Some rashes may disappear after a few days, but some may last for a few weeks. Common causes of rashes include: Viral infections, such as: ?Colds. ?Measles. ?Hand, foot, and mouth disease. Bacterial infections, such as: ?Scarlet fever. ?Impetigo. Fungal infections, such as Amelie. Allergic reactions to food, medicines, or skin care products. Follow these instructions at home: The goal of treatment is to stop the itching and keep the rash from spreading. Pay attention to anychanges in your symptoms. Follow these instructions to help with your condition: Medicine Take or apply bdmw-vze-zkokhqm and prescription medicines only as told by your health care provider. These may include: Corticosteroid creams to treat red or swollen skin. Anti-itch lotions. Oral allergy medicines (antihistamines). Oral corticosteroids for severe symptoms. Skin care Apply cool compresses to the affected areas. Do not scratch or rub your skin. Avoid covering the rash. Make sure the rash is exposed to air as much as possible. Managing itching and discomfort Avoid hot showers or baths, which can make itching worse. A cold shower may help. Try taking a bath with: ?Epsom salts. Follow aircraft lay out worker instructions on the packaging. You can get these at your local pharmacy or grocery store. ?Baking soda. Pour a small amount into the bath as told by your health care provider. ?Colloidal oatmeal. Follow aircraft lay out worker instructions on the packaging. You can get this at your local pharmacy or grocery store. Try applying baking soda paste to your skin. Stir water into baking soda until it reaches a paste-like consistency. Try applying calamine lotion. This is an asqc-pbk-xogffso lotion that helps to relieve itchiness. Keep cool and out of the sun. Sweating and being hot can make itching worse. General instructions Rest as needed. Drink enough fluid to keep your urine pale yellow. Wear loose-fitting clothing. Avoid scented soaps, detergents, and perfumes. Use gentle soaps, detergents, perfumes, and other cosmetic products. Avoid any substance that causes your rash. Keep a journal to help track what causes your rash. Write down: ?What you eat. ?What cosmetic products you use. ?What you drink. ?What you wear. This includes jewelry. Keep all follow-up visits as told by your health care provider. This is important. Contact a health care provider if: You sweat at night. You lose weight. You urinate more than normal. You urinate less than normal, or you notice that your urine is a darker color than usual. You feel weak. You vomit. Your skin or the whites of your eyes look yellow (jaundice). Your skin: ?Tingles. ?Is numb. Your rash: ?Does not go away after several days. ?Gets worse. You are: ?Unusually thirsty. ?More tired than normal. You have: ?New symptoms. ?Pain in your abdomen. ?A fever. ?Diarrhea. Get help right away if you: Have a fever and your symptoms suddenly get worse. Develop confusion. Have a severe headache or a stiff neck. Have severe joint pains or stiffness. Have a seizure. Develop a rash that covers all or most of your body. The rash may or may not be painful. Develop blisters that: ?Are on top of the rash. ?Grow larger or grow together. ?Are painful. ?Are inside your nose or mouth. Develop a rash that: ?Looks like purple pinprick-sized spots all over your body. ?Has a bull's eye or looks like a target. ?Is not related to sun exposure, is red and painful, and causes your skin to peel. Summary A rash is a change in the color of your skin. Some rashes disappear after a few days, but some may last for a few weeks. The goal of treatment is to stop the itching and keep the rash from spreading. Take or apply ltqb-lan-kjsuzdn and prescription medicines only as told by your health care provider. Contact a health care provider if you have new or worsening symptoms. Keep all follow-up visits as told by your health care provider. This is important. This information is not intended to replace advice given to you by your health care provider. Make sure you discuss any questions you have with your health care provider. Document Released: 09/04/2003 Document Revised: 01/06/2020 Document Reviewed: 04/18/2019 [employer] Patient Education 2019 [employer]. 05/01/2022 12:00:18 Epidermal Cyst Epidermal Cyst An epidermal cyst is a sac made of skin tissue. The sac contains a substance called keratin. Keratin is a protein that is normally secreted through the hair follicles. When keratin becomes trapped inthe top layer of skin (epidermis), it can form an epidermal cyst. Epidermal cysts can be found anywhere on your body. These cysts are usually harmless (benign), and they may not cause symptoms unless they become infected. What are the causes? This condition may be caused by: A blocked hair follicle. A hair that curls and re-enters the skin instead of growing straight out of the skin (ingrown hair). A blocked pore. Irritated skin. An injury to the skin. Certain conditions that are passed along from parent to child (inherited). Human papillomavirus (HPV). Long-term (chronic) sun damage to the skin. What increases the risk? The following factors may make you more likely to develop an epidermal cyst: Having acne. Being overweight. Being 30-40 years old. What are the signs or symptoms? The only symptom of this condition may be a small, painless lump underneath the skin. When an epidermal cyst ruptures, it may become infected. Symptoms may include: Redness. Inflammation. Tenderness. Warmth. Fever. Keratin draining from the cyst. Keratin is grayish-white, bad-smelling substance. Pus draining from the cyst. How is this diagnosed? This condition is diagnosed with a physical exam. In some cases, you may have a sample of tissue (biopsy) taken from your cyst to be examined under amicroscope or tested for bacteria. You may be referred to a health care provider who specializes in skin care (financial coordinator). How is this treated? In many cases, epidermal cysts go away on their own without treatment. If a cyst becomes infected, treatment may include: Opening and draining the cyst, done by a health care provider. After draining, minor surgery to remove the rest of the cyst may be done. Antibiotic medicine. Injections of medicines (steroids) that help to reduce inflammation. Surgery to remove the cyst. Surgery may be done if the cyst: ?Becomes large. ?Bothers you. ?Has a chance of turning into cancer. Do not try to open a cyst yourself. Follow these instructions at home: Take fcpi-wme-wthcwtw and prescription medicines only as told by your health care provider. If you were prescribed an antibiotic medicine, take it it as told by your health care provider. Do not stop using the antibiotic even if you start to feel better. Keep the area around your cyst clean and dry. Wear loose, dry clothing. Avoid touching your cyst. Check your cyst every day for signs of infection. Check for: ?Redness, swelling, or pain. ?Fluid or blood. ?Warmth. ?Pus or a bad smell. Keep all follow-up visits as told by your health care provider. This is important. How is this prevented? Wear clean, dry, clothing. Avoid wearing tight clothing. Keep your skin clean and dry. Take showers or baths every day. Contact a health care provider if: Your cyst develops symptoms of infection. Your condition is not improving or is getting worse. You develop a cyst that looks different from other cysts you have had. You have a fever. Get help right away if: Redness spreads from the cyst into the surrounding area. Summary An epidermal cyst is a sac made of skin tissue. These cysts are usually harmless (benign), and theymay not cause symptoms unless they become infected. If a cyst becomes infected, treatment may include surgery to open and drain the cyst, or to remove it. Treatment may also include medicines by mouth or through an injection. Take [id number] and prescription medicines only as told by your health care provider. If you were prescribed an antibiotic medicine, take it as told by your health care provider. Do not stop using the antibiotic even if you start to feel better. Contact a health care provider if your condition is not improving or is getting worse. Keep all follow-up visits as told by your health care provider. This is important. This information is not intended to replace advice given to you by your health care provider. Make sure you discuss any questions you have with your health care provider. Document Released: 08/15/2005 Document Revised: 01/05/2020 Document Reviewed: 03/28/2019 [employer] Patient Education 2020 [employer]. Follow Up Care 04/28/2022 09:48:22 With:Britt Lara CNP Address: When: only if needed [facility] Primary Care evaluation + Plan note Future Appointments Appointment Date:05/06/2022 03:40:00 PM Scheduled Provider:Christiana Torres CNP Location:[facility] Appointment Type:BADH Screening Appointment Date:06/20/2022 01:20:00 PM Scheduled Provider:Alejo BRADLEY DO, FAAFP Location:[facility] Appointment Type:FM Open Future Scheduled Tests Laboratory* Hepatic Function Panel 06/10/21 * Lipid Panel 06/10/21 [facility] Primary Care evaluation + Plan note Future Appointments Appointment Date:06/20/2022 01:20:00 PM Scheduled Provider:Alejo BRADLEY DO, FAAFP Location:[facility] Appointment Type:FM Open Future Scheduled Tests Laboratory* Hepatic Function Panel 06/10/21 * Lipid Panel 06/10/21 [facility] Evaluation + Plan note Future Appointments Appointment Date:06/20/2022 01:20:00 PM Scheduled Provider:Alejo BRADLEY DO, FAAFP Location:[facility] Appointment Type:FM Open Appointment Date:06/26/2022 12:30:00 PM Scheduled Provider: Location:[facility] Appointment Type:Surgical PAT FT Appointment Date:07/01/2022 03:00:00 PM Scheduled Provider:Christiana Torres CNP Location:[facility] Appointment Type:BADH Follow Up Appointment Date:07/09/2022 10:30:00 AM Scheduled Provider: Location:[facility] Appointment Type:Surgery FT Appointment Date:07/22/2022 08:20:00 AM Scheduled Provider:Talon Solis MD Location:[facility] Appointment Type:GS Post Op 15 [facility] [place] Evaluation + Plan note Future Appointments Appointment Date:07/01/2022 03:00:00 PM Scheduled Provider:Christiana Torres CNP Location:[facility] Appointment Type:BADH Follow Up Appointment Date:07/09/2022 10:30:00 AM Scheduled Provider: Location:[facility] Appointment Type:Surgery FT Appointment Date:07/22/2022 08:20:00 AM Scheduled Provider:Talon Solis MD Location:[facility] Appointment Type: Post Op 15 Appointment Date:08/07/2022 07:40:00 AM Scheduled Provider:Alejo BRADLEY DO, FAAFP Location:[facility] Future Appointments Appointment Date:07/09/2022 10:30:00 AM Scheduled Provider: Location:[facility] Appointment Type:Surgery FT Appointment Date:07/22/2022 08:20:00 AM Scheduled Provider:Talon Solis MD Location:[facility] Appointment Type: Post Op 15 Appointment Date:08/07/2022 07:40:00 AM Scheduled Provider:Alejo BRADLEY DO, FAAFP Location:[facility] Appointment Type:FM Open Appointment Date:04/06/2023 10:00:00 AM Scheduled Provider:Christiana Torres CNP Location:[facility] Appointment Type:[facility] Follow Up [facility] Evaluation + Plan note Future Appointments Appointment Date:07/22/2022 08:20:00 AM Scheduled Provider:Talon Solis MD Location:[facility] Appointment Type:GS Post Op 15 Appointment Date:08/07/2022 07:40:00 AM Scheduled Provider:Alejo BRADLEY DO, FAAFP Location:[facility] Appointment Type:FM Open Appointment Date:04/06/2023 10:00:00 AM Scheduled Provider:Christiana Torres CNP Location:[facility] Appointment Type:[facility] Future Appointments Appointment Date:08/07/2022 07:40:00 AM Scheduled Provider:Alejo BRADLEY DO, FAAFP Location:[facility] Appointment Type:FM Open Appointment Date:04/06/2023 10:00:00 AM Scheduled Provider:hCristiana Torres CNP Location:[facility] Appointment Type:[facility] Follow Up [facility] [place] Evaluation + Plan note Future Appointments Appointment Date:04/06/2023 10:00:00 AM Scheduled Provider:Christiana Torres CNP Location:[facility] Appointment Type:[facility] Follow Up Future Scheduled Tests Laboratory* PSA Screen, Total 08/07/22 * Basic Metabolic Panel 08/07/22 * CBC w/ Auto Diff 08/07/22 * Hepatic Function Panel 08/07/22 * Lipid Panel 08/07/22 [facility] Evaluation + Plan note Future Appointments Appointment Date:05/19/2024 07:40:00 AM Scheduled Provider:Alejo BRADLEY DO, FAAFP Location:[facility] Appointment Type:FM Open Future Scheduled Tests Laboratory* PSA Screen, Total 08/07/22 * Basic Metabolic Panel 08/07/22 * CBC w/ Auto Diff 08/07/22 * Hepatic Function Panel 08/07/22 * Lipid Panel 08/07/22 [facility] Evaluation + Plan note Future Appointments Appointment Date:07/20/2024 09:30:00 AM Scheduled Provider: Location:[facility] Appointment Type:Surgery FT Appointment Date:08/04/2024 09:40:00 AM Scheduled Provider:PAULINA MORGAN PA-C Location:[facility] NICK LinaresLou Appointment Type:URO New Patient Appointment Date:08/05/2024 09:00:00 AM Scheduled Provider:Trixie Guzman MD Location:[facility] Appointment Type:[facility] Follow Up Appointment Date:06/16/2025 07:40:00 AM Scheduled Provider:Alejo BRADLEY DO, FAAFP Location:[facility] Appointment Type:FM Preventative Visit [facility] Evaluation + Plan note Future Appointments Appointment Date:08/17/2024 12:45:00 PM Scheduled Provider:Trixie Guzman MD Location:[facility] Appointment Type:BAD Follow Up Appointment Date:06/16/2025 07:40:00 AM Scheduled Provider:Alejo BRADLEY DO, FAAFP Location:[facility] Appointment Type:FM Preventative Visit [facility] evaluation + Plan note Future Appointments Appointment Date:06/16/2025 07:40:00 AM Scheduled Provider:Alejo BRADLEY DO, FAAFP Location:[facility] Appointment Type:FM Preventative Visit [facility] Primary Care History general Narrative - Reported* Type Description Date Surgical History hernia repair [employer] 4U Other Hospital course Narrative No data available for this section [facility] Hospital Discharge instructions No data available for this section [facility] [place] Progress note No data available for this section [facility] Reason for referral (narrative) Referred by: Britt Lara CNP [facility] Summary Purpose Family History No Family History Records FoundNo Family History Records FoundNo Family History Records FoundNo Family History Records FoundNo Family History Records FoundNo Family History Records Found No data available for this section No data available for this section No Family History Records Found No data available for this section No Family History Records Found No data available for this section No data available for this section Advance Directives No Advanced Directives Records FoundNo Advanced Directives Records FoundNo Advanced Directives Records FoundNo Advanced Directives Records FoundNo Advanced Directives Records FoundNo Advanced Directives Records FoundNo Advanced Directives Records FoundNo Advanced Directives Records Found Additional Source Comments Care Team (unrecognized sect ion and content) Personnel Name: Alejo BRADLEY DO, FAAFP Address: [address] [place] [address] Personnel Name: Alejo BRADLEY DO, FAAFP Address: [address] [place] [address] Personnel Name: Alejo BRADLEY DO, FAAFP Address: [address] [place] [address] Personnel Name: Alejo BRADLEY DO, FAAFP Address: [address] [place] [address] Personnel Name: Alejo BRADLEY DO, FAAFP Address: Address: [address] [place] [address] Personnel Name: Alejo BRADLEY DO, FAAFP Address: Address: [address] [place] [address] Personnel Name: Alejo BRADLEY DO, FAAFP Address: Address: [address] [place] [address] Personnel Name: Alejo BRADLEY DO, FAAFP Address: Address: [address] [place] [address] Personnel Name: Alejo BRADLEY DO, FAAFP Address: Address: [address] [place] [address] Personnel Name: Alejo BRADLEY DO, FAAFP Address: Address: [address] [place] [address] Personnel Name: Alejo BRADLEY DO, FAAFP Address: Address: [address] [place] [address] Personnel Name: Alejo BRADLEY DO, FAAFP Address: Address: [address] [place] [address] Personnel Name: Alejo BRADLEY DO, FAAFP Address: Address: [address] [place] [address] Personnel Name: Alejo BRADLEY DO, FAAFP Address: Address: [address] [place] [address] Personnel Name: Alejo BRADLEY DO, FAAFP Address: Address: [address] [place] [address]- Personnel Name: Alejo BRADLEY DO, FAAFP Address: Address: [address], [place] [address]- REASON FOR VISIT (unrecogniz ed section and content) RIGHT EAR MUFFLED, USING WAX SOFTNER DROPS (unrecognized sect ion and content) No Status Records FoundNo Status Records FoundNo Status Records FoundNo Status Records FoundNo Status Records FoundNo Status Records FoundNo Status Records FoundNo Status Records Found INFORMATION SOURCE (unrecogn ized section and content) DATE CREATED AUTHOR 06/16/2024 [facility] DATE CREATED AUTHOR AUTHOR'S ORGANIZ ATION 08/04/2024 [facility] DATE CREATED AUTHOR AUTHOR'S ORGANIZ ATION 08/08/[address] [facility] FOR RECORDS PERTAINING TO PATIENTS WHO ARE OR HAVE BEEN ENROLLED IN A CHEMICAL DEPENDENCY/SUBSTANCEABUSE PROGRAM, SOME INFORMATION MAY BE OMITTED. This clinical summary was aggregated from multiple sources. Caution should be exercised in using it in the provision of clinical care. This summary normalizes information from multiple sources, and as a consequence, information in this document may materially change the coding, format and clinical context of patient data. In addition, data may be omitted in some cases. CLINICAL DECISIONS SHOULD BE BASED ON THE PRIMARY CLINICAL RECORDS. [employer] provides no warranty or guarantee of the accuracy or completeness of information in this document.
[2024-09-16 19:21] LABS: Influenza Virus A Antigen Negative; Influenza Virus B Antigen Negative; Internal Control Within Normal Limits; Strep A Antigen Screen Negative
[2024-09-16 19:22] LABS: SARS-CoV-2 Ag POSITIVE (NEGATIVE)
--- NOTE | 2024-09-16 19:34 | ED_ITS ---
HPI HPI - General Adult General Chief complaint: Nausea/Vomiting/Diarrhea Stated complaint: FEVER, UPSET STOMACH Time Seen by Provider: 09/16/24 18:49 Source: patient Mode of arrival: walk-in Limitations: no limitations History of Present Illness HPI narrative: 69-year-old male presents to the emergency department for a 1 day history of cough and bodyaches. He has not been around anybody who has been ill that he is aware of. He has been nauseous. No fever at triage but he had 1 at home. Related Data Previous Rx's ?Medication ?Instructions ?Recorded cyclobenzaprine 10 mg tablet 10 mg PO TID PRN muscle spasm #14 07/03/24 tabs naproxen 500 mg tablet 500 mg PO Q12H PRN pain #20 tabs 07/03/24 ondansetron 4 mg disintegrating 4 mg PO Q6H PRN nausea and 09/16/24 tablet vomiting #20 tabs Allergies Allergy/AdvReac Type Severity Reaction Status Date / Time No Known Drug Allergies Allergy Verified 09/16/24 18:38 Opioid HPI Opioid Management Most Recent Opioid Data: Last Pain Scale 9 07/03/24 09:23 07/03/24 Review of Systems ROS Narrative A ten point review of systems is negative except as noted above. PFSH PFSH Social History Little interest or pleasure in doing things: not at all Feeling down, depressed, or hopeless: not at all Exam Narrative Exam Narrative: Nurses note and vital signs reviewed and patient is not hypoxic. General: The patient appears well and in no apparent distress. Patient is resting comfortably on cart. Skin: Warm, dry, no pallor noted. There is no rash noted. Head: Normocephalic, atraumatic Eye: Normal conjunctiva, no drainage Ears, Nose, Mouth, and Throat: oral mucosa is moist. Nares patent. Cardiovascular: Regular Rate and Rhythm Respiratory: Patient is in no distress, no accessory muscle use, lungs are clear to auscultation, no wheezing, rales or rhonchi Back: non-tender GI: Soft and nontender Musculoskeletal: The patient has no evidence of calf tenderness, no pitting edema, symmetrical pulses noted bilaterally Neurological: A&O, normal speech Psychiatric: Cooperative Constitutional Vital Signs, click to edit/add: Last Vital Signs Temp 98.5 F 09/16/24 18:34 Pulse 113 H 09/16/24 18:34 Resp 20 09/16/24 18:34 BP 154/97 H 09/16/24 18:34 Pulse Ox 95 09/16/24 18:34 Course Vital Signs Vital signs: Vital Signs Temperature 98.5 F 09/16/24 18:34 Pulse Rate 113 H 09/16/24 18:34 Respiratory Rate 20 09/16/24 18:34 Blood Pressure 154/97 H 09/16/24 18:34 Pulse Oximetry 95 09/16/24 18:34 Temperature 98.5 F 09/16/24 18:34 Pulse Rate 113 H 09/16/24 18:34 Respiratory Rate 20 09/16/24 18:34 Blood Pressure 154/97 H 09/16/24 18:34 Pulse Oximetry 95 09/16/24 18:34 Medical Decision Making MDM Narrative Medical decision making narrative: COVID test is positive and the patient was informed. He was prescribed Zofran. We discussed using a mask. Treatment diagnosis and follow-up were discussed with the patient. Differential Diagnosis Differential Diagnosis: COVID, influenza, strep, viral illness Lab Data Lab results reviewed: Yes I reviewed the patient's lab results Labs: Lab Results 09/16/24 Range/Units 18:48 Influenza Type A Ag Negative Influenza Type B Ag Negative SARS-CoV-2 Ag (CV2AG) Positive A (NEGATIVE) Streptococcus Screen Negative Discharge Plan Discharge Chief Complaint: Nausea/Vomiting/Diarrhea Clinical Impression: COVID-19 Patient Disposition: Home, Self-Care Time of Disposition Decision: 19:27 Condition: Good Mode of Transportation: Private Vehicle Prescriptions / Home Meds: New ondansetron 4 mg tablet,disintegrating 4 mg PO Q6H PRN (Reason: nausea and vomiting) Qty: 20 0RF No Action naproxen 500 mg tablet 500 mg PO Q12H PRN (Reason: pain) Qty: 20 0RF cyclobenzaprine 10 mg tablet 10 mg PO TID PRN (Reason: muscle spasm) Qty: 14 0RF Print Language: Greenlandic Instructions: COVID-19 (Coronavirus Disease 2019) (ED), COVID-19: Slow the Coronavirus Spread (ED), Face Coverings (Masks) and COVID-19 (ED) Referrals: ELROY CABRERA [Primary Care Provider] - 1 week
[2024-09-16] MEDS: ONDANSETRON PF 4 MG/2 ML VIAL IV (19:40)
[2024-09-16 19:45] VITALS: BP 126/80; PULSE 80; O2SAT 94
== END 2024-09-16 19:45 | disposition home or self-care (01) ==
PROVIDERS: Physician Assistant; Emergency Provider Emergency Medicine; PCP Family Medicine
DX: U07.1 COVID-19 (principal)
CPT/HCPCS: 87070; 87804; 87811; 87880; 96374; 99284; J2405